=== PATIENT | male | born 1955 | race Two or more races ===

== ENCOUNTER 2019-07-07 14:29 | Inpatient (IN) | payer MEDICAID ==
[~2019-07-07] VITALS: Ht 165.1 cm; Wt 64.8 kg
[2019-07-07] MEDS ORDERED: METF-960 PO (14:42)
[2019-07-07 14:52] LABS: GLUCOSE,POINT OF CARE 187 MG/DL (70-110)
[2019-07-07 15:38] LABS: BASOPHILS % (AUTO) 0.1 % (0.0-2.0); EOSINOPHILS % (AUTO) 0.3 % (1.0-6.0); HEMATOCRIT 36.7 % (41-53); HEMOGLOBIN 12.4 g/dL (13.5-17.5); LYMPHOCYTES # (AUTO) 1.2 K/uL (1.0-4.8); LYMPHOCYTES % (AUTO) 7.8 % (22.0-44.0); MEAN CORPUSCULAR HEMOGLOBIN 31.1 pg (26.0-34.0); MEAN CORPUSCULAR HGB CONC 33.9 G/dL (31.0-37.0); MEAN CORPUSCULAR VOLUME 92 fL (80-100); MONOCYTES # (AUTO) 1.4 K/uL (0.1-1.0); MONOCYTES % (AUTO) 9.2 % (2.0-9.0); NEUTROPHILS # (AUTO) 12.2 K/uL (1.8-7.7); NEUTROPHILS % (AUTO) 82.6 % (40.0-70.0); PLATELET COUNT (AUTO) 255 K/uL (150-450); RED BLOOD CELL COUNT(AUTO) 3.99 MIL/uL (4.50-5.90); RED CELL DISTRIBUTION WIDTH 12.9 % (11.5-14.5)
[2019-07-07 15:52] LABS: ANION GAP 7 mmol/L (8-16); CALCIUM, TOTAL 8.5 mg/dL (8.8-10.5); CARBON DIOXIDE 26 mmol/L (22-29); CHLORIDE 102 mmol/L (98-107); CREATININE 0.65 mg/dL (0.60-1.30); GLOMERULAR FILTR. RATE CALC > 60 mL/min (>60); GLUCOSE,RANDOM 226 mg/dL (70-110); SODIUM SERUM 135 mmol/L (136-145); UREA NITROGEN, BLOOD 7 mg/dL (7-18)
[2019-07-07 15:54] LABS: B-TYPE NATRIURETIC PEPTIDE 117 pg/mL (0-100)
[2019-07-07 16:19] LABS: ALANINE AMINOTRANSFERASE 36 U/L (12-78); ALBUMIN 2.9 g/dL (3.4-5.0); ALKALINE PHOSPHATASE 140 U/L (46-116); ASPARTATE AMINOTRANSFERASE 38 U/L (15-37); BILIRUBIN,TOTAL 0.5 mg/dL (0.1-1.0); CREATINE KINASE, TOTAL ONLY 77 U/L (39-308); TOTAL PROTEIN, SERUM 6.5 g/dL (6.4-8.2)
[2019-07-07] MEDS ORDERED: ONDANSETRON HCL 4 MG/2 ML VIAL IVP PRN ×2 (16:45→20:45)
[2019-07-07] MEDS ORDERED: ACETAMINOPHEN 325 MG TABLET PO PRN (16:45)
[2019-07-07] MEDS ORDERED: 0.9% SODIUM CHLORIDE 10 ML SYRINGE IVP PRN (16:45)
[2019-07-07 18:00] LABS: APPEARANCE,URINE CLOUDY (CLEAR); BILIRUBIN,URINE NEGATIVE (NEGATIVE); GLUCOSE, URINE (UA) >=1000 mg/dL (NEGATIVE); KETONES,URINE TRACE mg/dL (NEGATIVE); LEUKOCYTE ESTERASE ,URINE SMALL (NEGATIVE); NITRATE,URINE NEGATIVE (NEGATIVE); OCCULT BLOOD,URINE NEGATIVE (NEGATIVE); PROTEIN,URINE SEE CONFIRM (NEGATIVE)
[2019-07-07 18:31] LABS: BACTERIA,URINE Few /HPF (None Seen); SQUAMOUS EPITHELIAL CELL,UR Many /LPF (None Seen); SULFOSALICYLIC ACID,URINE 3+ (Negative)
[2019-07-07] MEDS ORDERED: ZOLPIDEM TARTRATE 5 MG TABLET PO PRN (20:45)
[2019-07-07] MEDS ORDERED: BISACODYL 10 MG RECTAL RECTAL SUPPOSITORY PR PRN (20:45)
[2019-07-07] MEDS: DOCUSATE SODIUM 100 MG CAPSULE PO SCH (21:00)
[2019-07-07] MEDS: PIPERACILLIN/TAZO 3.375 GM/D5W 50 ML IV SCH (22:15)
[2019-07-07 23:02] LABS: GLUCOSE,POINT OF CARE 150 MG/DL (70-110)
[2019-07-07] MEDS: HEPARIN SODIUM,PORCINE 5,000 UNITS/ML VIAL SQ SCH (23:27)
[2019-07-08] MEDS: PIPERACILLIN/TAZO 3.375 GM/D5W 50 ML IV SCH ×4 (03:40→22:03)
[2019-07-08 04:04] VITALS: BP 116/63
[2019-07-08] MEDS ORDERED: INFLUENZA VIRUS VACCINE QVS 2019-20 (3YR+)/PF 60 MCG/0.5 ML SYRINGE IM ONE (06:00)
[2019-07-08 06:51] LABS: BASOPHILS % (AUTO) 0.3 % (0.0-2.0); EOSINOPHILS % (AUTO) 0.4 % (1.0-6.0); HEMATOCRIT 33.9 % (41-53); LYMPHOCYTES % (AUTO) 18.6 % (22.0-44.0); MEAN CORPUSCULAR HEMOGLOBIN 32.2 pg (26.0-34.0); MEAN CORPUSCULAR HGB CONC 35.2 G/dL (31.0-37.0); MEAN CORPUSCULAR VOLUME 91 fL (80-100); MONOCYTES % (AUTO) 9.4 % (2.0-9.0); NEUTROPHILS # (AUTO) 7.6 K/uL (1.8-7.7); NEUTROPHILS % (AUTO) 71.3 % (40.0-70.0); PLATELET COUNT (AUTO) 282 K/uL (150-450); RED BLOOD CELL COUNT(AUTO) 3.71 MIL/uL (4.50-5.90); RED CELL DISTRIBUTION WIDTH 12.6 % (11.5-14.5)
[2019-07-08 07:18] LABS: ALANINE AMINOTRANSFERASE 31 U/L (12-78); ALBUMIN 2.7 g/dL (3.4-5.0); ALKALINE PHOSPHATASE 135 U/L (46-116); ANION GAP 9 mmol/L (8-16); ASPARTATE AMINOTRANSFERASE 27 U/L (15-37); CALCIUM, TOTAL 8.2 mg/dL (8.8-10.5); CARBON DIOXIDE 27 mmol/L (22-29); CHLORIDE 104 mmol/L (98-107); CREATININE 0.61 mg/dL (0.60-1.30); GLOMERULAR FILTR. RATE CALC > 60 mL/min (>60); GLUCOSE,RANDOM 147 mg/dL (70-110); POTASSIUM 3.3 mmol/L (3.5-5.1); SODIUM SERUM 140 mmol/L (136-145); TOTAL PROTEIN, SERUM 6.3 g/dL (6.4-8.2); UREA NITROGEN, BLOOD 7 mg/dL (7-18)
[2019-07-08 07:34] LABS: BILIRUBIN,TOTAL 0.8 mg/dL (0.1-1.0)
[2019-07-08 08:03] VITALS: BP 119/64
[2019-07-08] MEDS: HEPARIN SODIUM,PORCINE 5,000 UNITS/ML VIAL SQ SCH ×2 (08:27→16:27)
[2019-07-08] MEDS: DOCUSATE SODIUM 100 MG CAPSULE PO SCH ×2 (08:27→21:00)
[2019-07-08] MEDS: PANTOPRAZOLE SODIUM 40 MG DR TABLET PO SCH (08:28)
[2019-07-08] MEDS ORDERED: GADOBUTROL 1 MMOL/ML 10 ML VIAL IVP ONE (08:38)
[2019-07-08 12:01] VITALS: BP 142/93
[2019-07-08] MEDS: HYDROCODONE/ACETAMINOPHEN 5-325 MG TABLET PO PRN (15:11)
[2019-07-08 16:00] VITALS: BP 131/67
[2019-07-08 20:33] VITALS: BP 110/61
[2019-07-09 00:25] VITALS: BP 126/71
[2019-07-09] MEDS: PIPERACILLIN/TAZO 3.375 GM/D5W 50 ML IV SCH ×4 (03:55→21:30)
[2019-07-09] MEDS: HYDROCODONE/ACETAMINOPHEN 5-325 MG TABLET PO PRN ×2 (04:34→14:05)
[2019-07-09 05:01] VITALS: BP 122/68
[2019-07-09 06:05] LABS: BASOPHILS % (AUTO) 0.5 % (0.0-2.0); EOSINOPHILS % (AUTO) 0.9 % (1.0-6.0); HEMATOCRIT 33.4 % (41-53); HEMOGLOBIN 11.7 g/dL (13.5-17.5); LYMPHOCYTES # (AUTO) 0.8 K/uL (1.0-4.8); LYMPHOCYTES % (AUTO) 9.8 % (22.0-44.0); MEAN CORPUSCULAR HEMOGLOBIN 31.9 pg (26.0-34.0); MEAN CORPUSCULAR VOLUME 91 fL (80-100); MONOCYTES # (AUTO) 0.7 K/uL (0.1-1.0); MONOCYTES % (AUTO) 8.3 % (2.0-9.0); NEUTROPHILS % (AUTO) 80.5 % (40.0-70.0); PLATELET COUNT (AUTO) 290 K/uL (150-450); RED BLOOD CELL COUNT(AUTO) 3.66 MIL/uL (4.50-5.90); RED CELL DISTRIBUTION WIDTH 12.7 % (11.5-14.5)
[2019-07-09 08:14] VITALS: BP 119/72
[2019-07-09] MEDS: DOCUSATE SODIUM 100 MG CAPSULE PO SCH ×2 (09:06→21:00)
[2019-07-09] MEDS: PANTOPRAZOLE SODIUM 40 MG DR TABLET PO SCH (09:06)
[2019-07-09] MEDS: HEPARIN SODIUM,PORCINE 5,000 UNITS/ML VIAL SQ SCH ×2 (09:06)
[2019-07-09 12:45] VITALS: BP 139/70
[2019-07-09] MEDS ORDERED: POTASSIUM CHLORIDE 20 MEQ ER TABLET PO ONE (13:00)
[2019-07-09] MEDS ORDERED: HEPARIN SODIUM 25000 UNITS/D5W 250 ML IV PRN (14:28)
[2019-07-09] MEDS ORDERED: ASPIRIN 81 MG CHEWABLE TABLET PO ONE (14:30)
[2019-07-09] MEDS ORDERED: HEPARIN SODIUM,PORCINE 5,000 UNITS/ML VIAL IVP PRN ×2 (14:30)
[2019-07-09] MEDS ORDERED: HEPARIN SODIUM,PORCINE 5,000 UNITS/ML VIAL IVP ONE (14:30)
[2019-07-09] MEDS ORDERED: INFLUENZA VIRUS VACCINE QVS 2019-20 (3YR+)/PF 60 MCG/0.5 ML SYRINGE IM ONE (15:00)
[2019-07-09 15:41] VITALS: BP 121/71
[2019-07-09] MEDS ORDERED: SODIUM CHLORIDE 0.9% 250 ML IV ONE (16:08)
[2019-07-09] MEDS ORDERED: DEXTROSE 50%-WATER 25 GM/50 ML SYRINGE IVP PRN (17:30)
[2019-07-09 17:44] LABS: GLUCOMETER DEV NAME(LOC) 5N.1; GLUCOSE,POINT OF CARE 164 MG/DL (70-110)
[2019-07-09] MEDS: INSULIN LISPRO 100 UNITS/ML SQ PRN (18:26)
[2019-07-09 20:08] VITALS: BP 101/57
[2019-07-10 00:11] VITALS: BP 104/63
[2019-07-10 01:50] LABS: GLUCOMETER DEV NAME(LOC) 5N.1; GLUCOSE,POINT OF CARE 120 MG/DL (70-110)
[2019-07-10] MEDS: PIPERACILLIN/TAZO 3.375 GM/D5W 50 ML IV SCH ×4 (04:17→21:30)
[2019-07-10 04:27] VITALS: BP 116/65
[2019-07-10 07:16] LABS: BASOPHILS % (AUTO) 0.3 % (0.0-2.0); EOSINOPHILS % (AUTO) 1.1 % (1.0-6.0); HEMATOCRIT 33.1 % (41-53); HEMOGLOBIN 11.7 g/dL (13.5-17.5); LYMPHOCYTES # (AUTO) 1.4 K/uL (1.0-4.8); LYMPHOCYTES % (AUTO) 17.9 % (22.0-44.0); MEAN CORPUSCULAR HGB CONC 35.3 G/dL (31.0-37.0); MEAN CORPUSCULAR VOLUME 91 fL (80-100); MONOCYTES # (AUTO) 0.9 K/uL (0.1-1.0); MONOCYTES % (AUTO) 12.3 % (2.0-9.0); NEUTROPHILS # (AUTO) 5.3 K/uL (1.8-7.7); NEUTROPHILS % (AUTO) 68.4 % (40.0-70.0); PLATELET COUNT (AUTO) 297 K/uL (150-450); RED BLOOD CELL COUNT(AUTO) 3.65 MIL/uL (4.50-5.90); RED CELL DISTRIBUTION WIDTH 12.6 % (11.5-14.5)
[2019-07-10 07:28] LABS: ALANINE AMINOTRANSFERASE 30 U/L (12-78); ALBUMIN 2.5 g/dL (3.4-5.0); ALKALINE PHOSPHATASE 206 U/L (46-116); ANION GAP 10 mmol/L (8-16); ASPARTATE AMINOTRANSFERASE 33 U/L (15-37); BILIRUBIN,TOTAL 0.9 mg/dL (0.1-1.0); CALCIUM, TOTAL 8.3 mg/dL (8.8-10.5); CARBON DIOXIDE 28 mmol/L (22-29); CHLORIDE 103 mmol/L (98-107); CREATININE 0.64 mg/dL (0.60-1.30); GLOMERULAR FILTR. RATE CALC > 60 mL/min (>60); GLUCOSE,RANDOM 123 mg/dL (70-110); POTASSIUM 3.5 mmol/L (3.5-5.1); SODIUM SERUM 141 mmol/L (136-145); TOTAL PROTEIN, SERUM 6.2 g/dL (6.4-8.2); UREA NITROGEN, BLOOD 6 mg/dL (7-18)
[2019-07-10 08:07] VITALS: BP 113/60
[2019-07-10] MEDS: ASPIRIN 81 MG CHEWABLE TABLET PO SCH (08:34)
[2019-07-10] MEDS: DOCUSATE SODIUM 100 MG CAPSULE PO SCH ×2 (08:34→20:17)
[2019-07-10] MEDS: PANTOPRAZOLE SODIUM 40 MG DR TABLET PO SCH (08:35)
[2019-07-10 08:40] LABS: GLUCOMETER DEV NAME(LOC) AHU.; GLUCOSE,POINT OF CARE 158 MG/DL (70-110)
[2019-07-10 08:40] LABS: GLUCOMETER DEV NAME(LOC) AHU.; GLUCOSE,POINT OF CARE 173 MG/DL (70-110)
[2019-07-10 08:40] LABS: GLUCOMETER DEV NAME(LOC) AHU.; GLUCOSE,POINT OF CARE 141 MG/DL (70-110)
[2019-07-10 08:40] LABS: GLUCOMETER DEV NAME(LOC) AHU.; GLUCOSE,POINT OF CARE 225 MG/DL (70-110)
[2019-07-10 08:40] LABS: GLUCOMETER DEV NAME(LOC) AHU.; GLUCOSE,POINT OF CARE 212 MG/DL (70-110)
[2019-07-10 11:16] LABS: GLUCOMETER DEV NAME(LOC) 5N.1; GLUCOSE,POINT OF CARE 123 MG/DL (70-110)
[2019-07-10 11:45] VITALS: BP 127/70
[2019-07-10 11:51] LABS: GLUCOMETER DEV NAME(LOC) 5S.2A; GLUCOSE,POINT OF CARE 146 MG/DL (70-110)
[2019-07-10] MEDS: INSULIN LISPRO 100 UNITS/ML SQ PRN ×3 (12:39→20:18)
[2019-07-10] MEDS: HYDROCODONE/ACETAMINOPHEN 5-325 MG TABLET PO PRN (13:53)
[2019-07-10 16:09] VITALS: BP 109/64
[2019-07-10 17:51] LABS: GLUCOMETER DEV NAME(LOC) 5N.1; GLUCOSE,POINT OF CARE 175 MG/DL (70-110)
[2019-07-10 20:29] VITALS: BP 118/65
[2019-07-10 21:33] LABS: GLUCOMETER DEV NAME(LOC) 5N.1; GLUCOSE,POINT OF CARE 194 MG/DL (70-110)
[2019-07-11 00:18] VITALS: BP 118/67
[2019-07-11] MEDS: HYDROCODONE/ACETAMINOPHEN 5-325 MG TABLET PO PRN ×3 (02:16→21:38)
[2019-07-11] MEDS: PIPERACILLIN/TAZO 3.375 GM/D5W 50 ML IV SCH ×4 (03:47→21:38)
[2019-07-11 04:53] VITALS: BP 126/76
[2019-07-11] MEDS: INSULIN LISPRO 100 UNITS/ML SQ PRN ×3 (06:21→17:43)
[2019-07-11] MEDS: PANTOPRAZOLE SODIUM 40 MG DR TABLET PO SCH (09:35)
[2019-07-11] MEDS: ASPIRIN 81 MG CHEWABLE TABLET PO SCH (09:35)
[2019-07-11] MEDS: DOCUSATE SODIUM 100 MG CAPSULE PO SCH ×2 (09:35→21:00)
[2019-07-11] MEDS: POVIDONE-IODINE 10% 120 ML SOLUTION TP SCH ×2 (12:15→21:39)
[2019-07-11 14:23] LABS: GLUCOMETER DEV NAME(LOC) 5N.1; GLUCOSE,POINT OF CARE 251 MG/DL (70-110)
[2019-07-11 18:39] LABS: GLUCOMETER DEV NAME(LOC) 5N.1; GLUCOSE,POINT OF CARE 177 MG/DL (70-110)
[2019-07-11 20:29] LABS: GLUCOMETER DEV NAME(LOC) 5S.2A; GLUCOSE,POINT OF CARE 177 MG/DL (70-110)
[2019-07-11 20:44] VITALS: BP 106/69
[2019-07-11] MEDS ORDERED: SODIUM CHLORIDE 0.9% 250 ML IV ONE (21:41)
[2019-07-12 00:26] VITALS: BP 105/71
[2019-07-12 01:13] LABS: GLUCOMETER DEV NAME(LOC) 5N.1; GLUCOSE,POINT OF CARE 161 MG/DL (70-110)
[2019-07-12] MEDS: PIPERACILLIN/TAZO 3.375 GM/D5W 50 ML IV SCH ×4 (04:56→22:08)
[2019-07-12] MEDS: HYDROCODONE/ACETAMINOPHEN 5-325 MG TABLET PO PRN ×3 (04:57→20:49)
[2019-07-12 05:38] VITALS: BP 132/68
[2019-07-12 07:31] VITALS: BP 122/72
[2019-07-12] MEDS: PANTOPRAZOLE SODIUM 40 MG DR TABLET PO SCH (08:27)
[2019-07-12] MEDS: ASPIRIN 81 MG CHEWABLE TABLET PO SCH (08:27)
[2019-07-12] MEDS: DOCUSATE SODIUM 100 MG CAPSULE PO SCH ×2 (08:27→20:50)
[2019-07-12] MEDS: POVIDONE-IODINE 10% 120 ML SOLUTION TP SCH ×2 (08:29→20:52)
[2019-07-12 11:13] VITALS: BP 135/69
[2019-07-12] MEDS: INSULIN LISPRO 100 UNITS/ML SQ PRN ×2 (11:19→17:44)
[2019-07-12 15:50] VITALS: BP 122/65
[2019-07-12 21:02] VITALS: BP 129/62
[2019-07-12 22:26] LABS: BASOPHILS % (AUTO) 0.3 % (0.0-2.0); EOSINOPHILS % (AUTO) 1.2 % (1.0-6.0); HEMOGLOBIN 11.1 g/dL (13.5-17.5); LYMPHOCYTES # (AUTO) 1.7 K/uL (1.0-4.8); LYMPHOCYTES % (AUTO) 19.1 % (22.0-44.0); MEAN CORPUSCULAR HEMOGLOBIN 31.6 pg (26.0-34.0); MEAN CORPUSCULAR HGB CONC 34.8 G/dL (31.0-37.0); MEAN CORPUSCULAR VOLUME 91 fL (80-100); MONOCYTES # (AUTO) 1.1 K/uL (0.1-1.0); NEUTROPHILS # (AUTO) 6.1 K/uL (1.8-7.7); NEUTROPHILS % (AUTO) 67.4 % (40.0-70.0); PLATELET COUNT (AUTO) 346 K/uL (150-450); RED BLOOD CELL COUNT(AUTO) 3.51 MIL/uL (4.50-5.90); RED CELL DISTRIBUTION WIDTH 12.5 % (11.5-14.5)
[2019-07-12 22:43] LABS: ANION GAP 7 mmol/L (8-16); CALCIUM, TOTAL 8.7 mg/dL (8.8-10.5); CARBON DIOXIDE 29 mmol/L (22-29); CHLORIDE 99 mmol/L (98-107); CREATININE 0.77 mg/dL (0.60-1.30); GLOMERULAR FILTR. RATE CALC > 60 mL/min (>60); GLUCOSE,RANDOM 209 mg/dL (70-110); POTASSIUM 3.9 mmol/L (3.5-5.1); SODIUM SERUM 135 mmol/L (136-145); UREA NITROGEN, BLOOD 7 mg/dL (7-18)
[2019-07-12 23:22] LABS: GLUCOMETER DEV NAME(LOC) 5N.1; GLUCOSE,POINT OF CARE 167 MG/DL (70-110)
[2019-07-12 23:22] LABS: GLUCOMETER DEV NAME(LOC) 5N.1; GLUCOSE,POINT OF CARE 170 MG/DL (70-110)
[2019-07-13] VITALS (15 sets, daily range): BP systolic 112–143; BP diastolic 54–68
[2019-07-13] MEDS: HYDROCODONE/ACETAMINOPHEN 5-325 MG TABLET PO PRN ×2 (00:33→15:17)
[2019-07-13] MEDS: PIPERACILLIN/TAZO 3.375 GM/D5W 50 ML IV SCH ×4 (04:30→22:10)
[2019-07-13 07:05] LABS: GLUCOMETER DEV NAME(LOC) 5N.1; GLUCOSE,POINT OF CARE 176 MG/DL (70-110)
[2019-07-13] MEDS ORDERED: LIDOCAINE/PF 1% 30 ML VIAL ONE (07:23)
[2019-07-13] MEDS ORDERED: HEPARIN SODIUM 1000 UNITS/NS 1,000 ML ONE (07:23)
[2019-07-13] MEDS ORDERED: SODIUM BICARBONATE 50 MEQ/50 ML VIAL ONE (07:23)
[2019-07-13] MEDS ORDERED: IOHEXOL 300 MG/ML 150 ML VIAL ONE (07:23)
[2019-07-13] MEDS ORDERED: SODIUM CHLORIDE 0.9% 500 ML IV ONE (08:34)
[2019-07-13] MEDS ORDERED: HEPARIN SODIUM 1000 UNITS/NS 1,000 ML IARTER ONE (08:34)
[2019-07-13] MEDS ORDERED: IOHEXOL 300 MG/ML 150 ML VIAL IARTER ONE (08:45)
[2019-07-13] MEDS ORDERED: LIDOCAINE 1% 30 ML/SOD BICARB 8.4% 4 ML SQ ONE (08:45)
[2019-07-13] MEDS ORDERED: IOHEXOL 300 MG/ML 50 ML VIAL ONE (08:54)
[2019-07-13] MEDS: PANTOPRAZOLE SODIUM 40 MG DR TABLET PO SCH (10:33)
[2019-07-13] MEDS: MULTIVITAMINS, THERAPEUTIC TABLET PO SCH (10:33)
[2019-07-13] MEDS: DOCUSATE SODIUM 100 MG CAPSULE PO SCH ×2 (10:33→20:17)
[2019-07-13] MEDS: POVIDONE-IODINE 10% 120 ML SOLUTION TP SCH ×2 (10:34→20:31)
[2019-07-13] MEDS: ASPIRIN 81 MG CHEWABLE TABLET PO SCH (10:34)
[2019-07-13] MEDS: INSULIN LISPRO 100 UNITS/ML SQ PRN ×2 (11:15→17:22)
[2019-07-13 12:12] LABS: GLUCOMETER DEV NAME(LOC) 5N.1; GLUCOSE,POINT OF CARE 197 MG/DL (70-110)
[2019-07-13 17:37] LABS: GLUCOMETER DEV NAME(LOC) 5S.2A; GLUCOSE,POINT OF CARE 180 MG/DL (70-110)
[2019-07-13 17:37] LABS: GLUCOMETER DEV NAME(LOC) 5S.2A; GLUCOSE,POINT OF CARE 146 MG/DL (70-110)
[2019-07-13] MEDS: MORPHINE SULFATE 2 MG/ML SYRINGE IVP PRN (20:17)
[2019-07-14 00:28] VITALS: BP 128/65
[2019-07-14] MEDS: PIPERACILLIN/TAZO 3.375 GM/D5W 50 ML IV SCH ×4 (04:28→21:45)
[2019-07-14 04:48] VITALS: BP 120/68
[2019-07-14] MEDS: INSULIN LISPRO 100 UNITS/ML SQ PRN ×4 (05:56→21:50)
[2019-07-14 05:59] LABS: GLUCOMETER DEV NAME(LOC) 5N.1; GLUCOSE,POINT OF CARE 137 MG/DL (70-110)
[2019-07-14] MEDS: HYDROCODONE/ACETAMINOPHEN 5-325 MG TABLET PO PRN ×2 (05:59→17:50)
[2019-07-14 07:23] VITALS: BP 114/58
[2019-07-14] MEDS: POVIDONE-IODINE 10% 120 ML SOLUTION TP SCH ×3 (09:00→16:55)
[2019-07-14] MEDS: DOCUSATE SODIUM 100 MG CAPSULE PO SCH ×2 (09:12→21:45)
[2019-07-14] MEDS: PANTOPRAZOLE SODIUM 40 MG DR TABLET PO SCH (09:12)
[2019-07-14] MEDS: MULTIVITAMINS, THERAPEUTIC TABLET PO SCH (09:12)
[2019-07-14] MEDS: ASPIRIN 81 MG CHEWABLE TABLET PO SCH (09:13)
[2019-07-14 11:43] VITALS: BP 114/56
[2019-07-14 12:00] LABS: GLUCOMETER DEV NAME(LOC) 5S.1; GLUCOSE,POINT OF CARE 269 MG/DL (70-110)
[2019-07-14 15:35] LABS: GLUCOMETER DEV NAME(LOC) 5S.2A; GLUCOSE,POINT OF CARE 190 MG/DL (70-110)
[2019-07-14 15:38] VITALS: BP 119/54
[2019-07-14] MEDS ORDERED: IOVERSOL 320 MG/ML 100 ML VIAL ONE (17:52)
[2019-07-14] MEDS ORDERED: SODIUM CHLORIDE 0.9% 100 ML ONE (17:52)
[2019-07-14 19:45] VITALS: BP 121/65
[2019-07-14] MEDS: VANCOMYCIN HCL 750 MG in DEXTROSE 5%-WATER 250 ML IV SCH (23:48)
[2019-07-15] VITALS (7 sets, daily range): BP systolic 108–129; BP diastolic 58–68
[2019-07-15] MEDS: HYDROCODONE/ACETAMINOPHEN 5-325 MG TABLET PO PRN ×2 (02:56→23:33)
[2019-07-15 03:53] LABS: GLUCOMETER DEV NAME(LOC) 5N.1; GLUCOSE,POINT OF CARE 219 MG/DL (70-110)
[2019-07-15 03:53] LABS: GLUCOMETER DEV NAME(LOC) 5N.1; GLUCOSE,POINT OF CARE 163 MG/DL (70-110)
[2019-07-15] MEDS: PIPERACILLIN/TAZO 3.375 GM/D5W 50 ML IV SCH ×4 (04:33→22:57)
[2019-07-15] MEDS: INSULIN LISPRO 100 UNITS/ML SQ PRN ×4 (06:25→23:07)
[2019-07-15] MEDS: VANCOMYCIN HCL 750 MG in DEXTROSE 5%-WATER 250 ML IV SCH ×3 (07:15→23:54)
[2019-07-15 07:20] LABS: ANION GAP 9 mmol/L (8-16); CALCIUM, TOTAL 9.1 mg/dL (8.8-10.5); CARBON DIOXIDE 27 mmol/L (22-29); CHLORIDE 101 mmol/L (98-107); CREATININE 0.75 mg/dL (0.60-1.30); GLOMERULAR FILTR. RATE CALC > 60 mL/min (>60); GLUCOSE,RANDOM 200 mg/dL (70-110); POTASSIUM 3.8 mmol/L (3.5-5.1); SODIUM SERUM 137 mmol/L (136-145); UREA NITROGEN, BLOOD 8 mg/dL (7-18)
[2019-07-15] MEDS: DOCUSATE SODIUM 100 MG CAPSULE PO SCH ×2 (09:00→21:00)
[2019-07-15] MEDS: MULTIVITAMINS, THERAPEUTIC TABLET PO SCH (09:02)
[2019-07-15] MEDS: ASPIRIN 81 MG CHEWABLE TABLET PO SCH (09:02)
[2019-07-15] MEDS: PANTOPRAZOLE SODIUM 40 MG DR TABLET PO SCH (09:02)
[2019-07-15 19:08] LABS: GLUCOMETER DEV NAME(LOC) 5S.2A; GLUCOSE,POINT OF CARE 203 MG/DL (70-110)
[2019-07-15 19:08] LABS: GLUCOMETER DEV NAME(LOC) 5S.2A; GLUCOSE,POINT OF CARE 189 MG/DL (70-110)
[2019-07-15 19:08] LABS: GLUCOMETER DEV NAME(LOC) 5S.2A; GLUCOSE,POINT OF CARE 261 MG/DL (70-110)
[2019-07-15] MEDS: POVIDONE-IODINE 10% 120 ML SOLUTION TP SCH (21:00)
[2019-07-16] VITALS (7 sets, daily range): BP systolic 107–133; BP diastolic 58–79
[2019-07-16 03:11] LABS: GLUCOMETER DEV NAME(LOC) 5N.1; GLUCOSE,POINT OF CARE 188 MG/DL (70-110)
[2019-07-16] MEDS: MORPHINE SULFATE 2 MG/ML SYRINGE IVP PRN (04:42)
[2019-07-16] MEDS: PIPERACILLIN/TAZO 3.375 GM/D5W 50 ML IV SCH ×4 (04:42→21:29)
[2019-07-16] MEDS: VANCOMYCIN HCL 750 MG in DEXTROSE 5%-WATER 250 ML IV SCH (07:11)
[2019-07-16 07:45] LABS: ANION GAP 9 mmol/L (8-16); CALCIUM, TOTAL 9.1 mg/dL (8.8-10.5); CARBON DIOXIDE 27 mmol/L (22-29); CHLORIDE 102 mmol/L (98-107); CREATININE 0.67 mg/dL (0.60-1.30); GLOMERULAR FILTR. RATE CALC > 60 mL/min (>60); GLUCOSE,RANDOM 180 mg/dL (70-110); POTASSIUM 3.9 mmol/L (3.5-5.1); SODIUM SERUM 138 mmol/L (136-145); UREA NITROGEN, BLOOD 9 mg/dL (7-18)
[2019-07-16 07:46] LABS: PROTHROMBIN TIME 10.4 SEC (9.4-11.6)
[2019-07-16] MEDS: PANTOPRAZOLE SODIUM 40 MG DR TABLET PO SCH (07:56)
[2019-07-16] MEDS: ASPIRIN 81 MG CHEWABLE TABLET PO SCH (07:56)
[2019-07-16] MEDS: MULTIVITAMINS, THERAPEUTIC TABLET PO SCH (07:56)
[2019-07-16] MEDS: DOCUSATE SODIUM 100 MG CAPSULE PO SCH ×2 (07:56→20:17)
[2019-07-16] MEDS: POVIDONE-IODINE 10% 120 ML SOLUTION TP SCH ×2 (07:57→23:49)
[2019-07-16] MEDS ORDERED: LIDOCAINE/PF 1% 30 ML VIAL ONE (08:39)
[2019-07-16] MEDS ORDERED: HEPARIN SODIUM 1000 UNITS/NS 500 ML ONE ×2 (08:39→10:09)
[2019-07-16] MEDS ORDERED: IOHEXOL 300 MG/ML 100 ML VIAL ONE (08:39)
[2019-07-16] MEDS ORDERED: SODIUM BICARBONATE 50 MEQ/50 ML VIAL ONE (08:39)
[2019-07-16] MEDS ORDERED: SODIUM CHLORIDE 0.9% 500 ML IV ONE (09:21)
[2019-07-16] MEDS ORDERED: HEPARIN SODIUM 1000 UNITS/NS 500 ML IV ONE (09:30)
[2019-07-16] MEDS ORDERED: HEPARIN SODIUM,PORCINE 5,000 UNITS/ML VIAL IVP ONE ×3 (09:30→10:45)
[2019-07-16] MEDS ORDERED: IOHEXOL 300 MG/ML 100 ML VIAL IARTER ONE (09:30)
[2019-07-16] MEDS ORDERED: LIDOCAINE 1% 30 ML/SOD BICARB 8.4% 4 ML SQ ONE (09:30)
[2019-07-16] MEDS ORDERED: ASPIRIN 325 MG TABLET ONE (10:12)
[2019-07-16] MEDS ORDERED: ASPIRIN 325 MG TABLET PO ONE (10:30)
[2019-07-16] MEDS ORDERED: IOHEXOL 300 MG/ML 50 ML VIAL ONE ×2 (11:21→11:47)
[2019-07-16] MEDS ORDERED: IOHEXOL 240 MG/ML 50 ML VIAL IARTER ONE (12:00)
[2019-07-16] MEDS ORDERED: IOHEXOL 300 MG/ML 50 ML VIAL IARTER ONE (12:00)
[2019-07-16 13:28] LABS: GLUCOMETER DEV NAME(LOC) 5N.1; GLUCOSE,POINT OF CARE 195 MG/DL (70-110)
[2019-07-16 17:24] LABS: GLUCOMETER DEV NAME(LOC) 5S.2A; GLUCOSE,POINT OF CARE 156 MG/DL (70-110)
[2019-07-16] MEDS: VANCOMYCIN HCL 1.25 GM in DEXTROSE 5%-WATER 250 ML IV SCH ×2 (17:52→23:42)
[2019-07-16] MEDS: INSULIN LISPRO 100 UNITS/ML SQ PRN ×2 (17:53→21:25)
[2019-07-16] MEDS: HYDROCODONE/ACETAMINOPHEN 5-325 MG TABLET PO PRN (18:04)
[2019-07-16] MEDS ORDERED: CLOPIDOGREL BISULFATE 300 MG TABLET PO ONE (20:00)
[2019-07-17 00:01] VITALS: BP 100/51
[2019-07-17 01:40] LABS: GLUCOMETER DEV NAME(LOC) 5N.1; GLUCOSE,POINT OF CARE 223 MG/DL (70-110)
[2019-07-17 01:40] LABS: GLUCOMETER DEV NAME(LOC) 5N.1; GLUCOSE,POINT OF CARE 280 MG/DL (70-110)
[2019-07-17] MEDS: PIPERACILLIN/TAZO 3.375 GM/D5W 50 ML IV SCH ×4 (03:00→21:05)
[2019-07-17 05:28] VITALS: BP 105/55
[2019-07-17] MEDS: HYDROCODONE/ACETAMINOPHEN 5-325 MG TABLET PO PRN ×2 (05:52→23:50)
[2019-07-17] MEDS ORDERED: SODIUM CHLORIDE 0.9% 250 ML IV ONE (05:56)
[2019-07-17] MEDS: VANCOMYCIN HCL 1.25 GM in DEXTROSE 5%-WATER 250 ML IV SCH ×3 (06:05→22:13)
[2019-07-17] MEDS: INSULIN LISPRO 100 UNITS/ML SQ PRN ×4 (06:10→20:34)
[2019-07-17 07:25] VITALS: BP 114/59
[2019-07-17] MEDS: ASPIRIN 81 MG CHEWABLE TABLET PO SCH (08:03)
[2019-07-17] MEDS: DOCUSATE SODIUM 100 MG CAPSULE PO SCH ×2 (08:04→20:33)
[2019-07-17] MEDS: POVIDONE-IODINE 10% 120 ML SOLUTION TP SCH ×2 (08:04→20:35)
[2019-07-17] MEDS: CLOPIDOGREL BISULFATE 75 MG TABLET PO SCH (08:04)
[2019-07-17] MEDS: MULTIVITAMINS, THERAPEUTIC TABLET PO SCH (08:04)
[2019-07-17] MEDS: PANTOPRAZOLE SODIUM 40 MG DR TABLET PO SCH (08:04)
[2019-07-17 11:02] VITALS: BP 127/64
[2019-07-17 11:38] LABS: ANION GAP 7 mmol/L (8-16); CALCIUM, TOTAL 8.7 mg/dL (8.8-10.5); CARBON DIOXIDE 29 mmol/L (22-29); CHLORIDE 101 mmol/L (98-107); CREATININE 0.89 mg/dL (0.60-1.30); GLOMERULAR FILTR. RATE CALC > 60 mL/min (>60); GLUCOSE,RANDOM 264 mg/dL (70-110); POTASSIUM 4.1 mmol/L (3.5-5.1); SODIUM SERUM 137 mmol/L (136-145); UREA NITROGEN, BLOOD 12 mg/dL (7-18)
[2019-07-17 12:30] LABS: GLUCOMETER DEV NAME(LOC) 5N.1; GLUCOSE,POINT OF CARE 241 MG/DL (70-110)
[2019-07-17 12:30] LABS: GLUCOMETER DEV NAME(LOC) 5N.1; GLUCOSE,POINT OF CARE 232 MG/DL (70-110)
[2019-07-17 16:14] VITALS: BP 134/66
[2019-07-17 20:20] VITALS: BP 126/65
[2019-07-17 20:27] LABS: GLUCOMETER DEV NAME(LOC) 5S.2A; GLUCOSE,POINT OF CARE 268 MG/DL (70-110)
[2019-07-18] VITALS (7 sets, daily range): BP systolic 107–133; BP diastolic 57–72
[2019-07-18] MEDS: PIPERACILLIN/TAZO 3.375 GM/D5W 50 ML IV SCH ×4 (03:03→22:18)
[2019-07-18] MEDS: VANCOMYCIN HCL 1.25 GM in DEXTROSE 5%-WATER 250 ML IV SCH ×3 (05:44→22:48)
[2019-07-18] MEDS: INSULIN LISPRO 100 UNITS/ML SQ PRN ×4 (06:01→20:14)
[2019-07-18 06:21] LABS: GLUCOMETER DEV NAME(LOC) 5N.1; GLUCOSE,POINT OF CARE 259 MG/DL (70-110)
[2019-07-18 06:22] LABS: GLUCOMETER DEV NAME(LOC) 5N.1; GLUCOSE,POINT OF CARE 193 MG/DL (70-110)
[2019-07-18] MEDS: PANTOPRAZOLE SODIUM 40 MG DR TABLET PO SCH (08:33)
[2019-07-18] MEDS: DOCUSATE SODIUM 100 MG CAPSULE PO SCH ×2 (08:33→20:08)
[2019-07-18] MEDS: CLOPIDOGREL BISULFATE 75 MG TABLET PO SCH (08:33)
[2019-07-18] MEDS: ASPIRIN 81 MG CHEWABLE TABLET PO SCH (08:33)
[2019-07-18] MEDS: MULTIVITAMINS, THERAPEUTIC TABLET PO SCH (08:33)
[2019-07-18 08:35] LABS: ANION GAP 7 mmol/L (8-16); CALCIUM, TOTAL 9.3 mg/dL (8.8-10.5); CARBON DIOXIDE 30 mmol/L (22-29); CHLORIDE 101 mmol/L (98-107); CREATININE 0.86 mg/dL (0.60-1.30); GLOMERULAR FILTR. RATE CALC > 60 mL/min (>60); GLUCOSE,RANDOM 215 mg/dL (70-110); POTASSIUM 3.9 mmol/L (3.5-5.1); SODIUM SERUM 138 mmol/L (136-145); UREA NITROGEN, BLOOD 13 mg/dL (7-18); VANCOMYCIN,RANDOM 38.8 mcg/mL (25.0-50.0)
[2019-07-18] MEDS: POVIDONE-IODINE 10% 120 ML SOLUTION TP SCH ×2 (08:41→20:08)
[2019-07-18] MEDS: HYDROCODONE/ACETAMINOPHEN 5-325 MG TABLET PO PRN ×2 (10:46→20:05)
[2019-07-18 20:12] LABS: GLUCOMETER DEV NAME(LOC) 5N.1; GLUCOSE,POINT OF CARE 235 MG/DL (70-110)
[2019-07-18 20:13] LABS: GLUCOMETER DEV NAME(LOC) 5S.2A; GLUCOSE,POINT OF CARE 297 MG/DL (70-110)
[2019-07-19 01:01] LABS: GLUCOMETER DEV NAME(LOC) 5N.1; GLUCOSE,POINT OF CARE 292 MG/DL (70-110)
[2019-07-19] MEDS: PIPERACILLIN/TAZO 3.375 GM/D5W 50 ML IV SCH ×4 (03:38→22:30)
[2019-07-19 04:34] VITALS: BP 119/67
[2019-07-19] MEDS: VANCOMYCIN HCL 1.25 GM in DEXTROSE 5%-WATER 250 ML IV SCH ×3 (06:44→23:34)
[2019-07-19] MEDS: INSULIN LISPRO 100 UNITS/ML SQ PRN ×4 (06:44→21:25)
[2019-07-19 07:37] LABS: ANION GAP 8 mmol/L (8-16); CALCIUM, TOTAL 9.6 mg/dL (8.8-10.5); CARBON DIOXIDE 29 mmol/L (22-29); CHLORIDE 104 mmol/L (98-107); CREATININE 1.04 mg/dL (0.60-1.30); GLOMERULAR FILTR. RATE CALC > 60 mL/min (>60); GLUCOSE,RANDOM 175 mg/dL (70-110); POTASSIUM 4.2 mmol/L (3.5-5.1); SODIUM SERUM 141 mmol/L (136-145); UREA NITROGEN, BLOOD 14 mg/dL (7-18)
[2019-07-19 08:01] VITALS: BP 111/63
[2019-07-19] MEDS: MULTIVITAMINS, THERAPEUTIC TABLET PO SCH (08:12)
[2019-07-19] MEDS: ASPIRIN 81 MG CHEWABLE TABLET PO SCH (08:12)
[2019-07-19] MEDS: CLOPIDOGREL BISULFATE 75 MG TABLET PO SCH (08:12)
[2019-07-19] MEDS: DOCUSATE SODIUM 100 MG CAPSULE PO SCH ×2 (08:12→21:09)
[2019-07-19] MEDS: PANTOPRAZOLE SODIUM 40 MG DR TABLET PO SCH (08:12)
[2019-07-19] MEDS: POVIDONE-IODINE 10% 120 ML SOLUTION TP SCH ×2 (08:12→21:10)
[2019-07-19 11:16] VITALS: BP 111/61
[2019-07-19] MEDS ORDERED: SODIUM CHLORIDE 0.9% 250 ML IV ONE (14:50)
[2019-07-19 15:41] VITALS: BP 110/59
[2019-07-19 19:21] VITALS: BP 118/63
[2019-07-19 21:15] LABS: GLUCOMETER DEV NAME(LOC) 5S.2A; GLUCOSE,POINT OF CARE 167 MG/DL (70-110)
[2019-07-19] MEDS: HYDROCODONE/ACETAMINOPHEN 5-325 MG TABLET PO PRN (23:34)
[2019-07-19 23:50] VITALS: BP 108/55
[2019-07-20] MEDS: PIPERACILLIN/TAZO 3.375 GM/D5W 50 ML IV SCH ×4 (04:39→22:25)
[2019-07-20 05:17] VITALS: BP 139/73
[2019-07-20] MEDS: INSULIN LISPRO 100 UNITS/ML SQ PRN ×4 (06:03→21:56)
[2019-07-20 06:16] LABS: ANION GAP 7 mmol/L (8-16); C-REACTIVE PROTEIN QUANT 8.86 mg/dL (0.00-0.30); CALCIUM, TOTAL 9.5 mg/dL (8.8-10.5); CARBON DIOXIDE 30 mmol/L (22-29); CHLORIDE 100 mmol/L (98-107); CREATININE 1.06 mg/dL (0.60-1.30); GLOMERULAR FILTR. RATE CALC > 60 mL/min (>60); GLUCOSE,RANDOM 217 mg/dL (70-110); POTASSIUM 4.2 mmol/L (3.5-5.1); SODIUM SERUM 137 mmol/L (136-145); UREA NITROGEN, BLOOD 14 mg/dL (7-18)
[2019-07-20 07:03] LABS: GLUCOMETER DEV NAME(LOC) 5N.1; GLUCOSE,POINT OF CARE 202 MG/DL (70-110)
[2019-07-20 07:03] LABS: GLUCOMETER DEV NAME(LOC) 5N.1; GLUCOSE,POINT OF CARE 197 MG/DL (70-110)
[2019-07-20 07:21] LABS: GLUCOMETER DEV NAME(LOC) 5S.2A; GLUCOSE,POINT OF CARE 234 MG/DL (70-110)
[2019-07-20] MEDS: VANCOMYCIN HCL 1.25 GM in DEXTROSE 5%-WATER 250 ML IV SCH ×3 (07:31→23:29)
[2019-07-20 08:31] VITALS: BP 129/71
[2019-07-20] MEDS: CLOPIDOGREL BISULFATE 75 MG TABLET PO SCH (08:36)
[2019-07-20] MEDS: MULTIVITAMINS, THERAPEUTIC TABLET PO SCH (08:37)
[2019-07-20] MEDS: POVIDONE-IODINE 10% 120 ML SOLUTION TP SCH ×2 (08:37→21:38)
[2019-07-20] MEDS: ASPIRIN 81 MG CHEWABLE TABLET PO SCH (08:37)
[2019-07-20] MEDS: PANTOPRAZOLE SODIUM 40 MG DR TABLET PO SCH (08:37)
[2019-07-20] MEDS: DOCUSATE SODIUM 100 MG CAPSULE PO SCH ×2 (08:37→21:38)
[2019-07-20 11:31] VITALS: BP 125/69
[2019-07-20] MEDS: HYDROCODONE/ACETAMINOPHEN 5-325 MG TABLET PO PRN (12:53)
[2019-07-20 16:26] VITALS: BP 100/50
[2019-07-20 18:15] LABS: GLUCOMETER DEV NAME(LOC) 5S.2A; GLUCOSE,POINT OF CARE 239 MG/DL (70-110)
[2019-07-20 20:42] VITALS: BP 134/70
[2019-07-20 23:50] VITALS: BP 128/66
[2019-07-21] MEDS: PIPERACILLIN/TAZO 3.375 GM/D5W 50 ML IV SCH ×4 (04:40→21:24)
[2019-07-21 05:40] VITALS: BP 126/65
[2019-07-21 06:22] LABS: GLUCOMETER DEV NAME(LOC) 5S.2A; GLUCOSE,POINT OF CARE 223 MG/DL (70-110)
[2019-07-21] MEDS: INSULIN LISPRO 100 UNITS/ML SQ PRN ×4 (06:22→21:35)
[2019-07-21] MEDS: HYDROCODONE/ACETAMINOPHEN 5-325 MG TABLET PO PRN ×2 (06:25→22:01)
[2019-07-21] MEDS: VANCOMYCIN HCL 1.25 GM in DEXTROSE 5%-WATER 250 ML IV SCH ×2 (07:41→18:42)
[2019-07-21 07:47] VITALS: BP 127/66
[2019-07-21 07:58] LABS: ANION GAP 8 mmol/L (8-16); CALCIUM, TOTAL 9.7 mg/dL (8.8-10.5); CARBON DIOXIDE 29 mmol/L (22-29); CHLORIDE 100 mmol/L (98-107); CREATININE 1.07 mg/dL (0.60-1.30); GLOMERULAR FILTR. RATE CALC > 60 mL/min (>60); GLUCOSE,RANDOM 210 mg/dL (70-110); POTASSIUM 4.6 mmol/L (3.5-5.1); SODIUM SERUM 137 mmol/L (136-145); UREA NITROGEN, BLOOD 18 mg/dL (7-18); VANCOMYCIN,RANDOM 31.4 mcg/mL (25.0-50.0)
[2019-07-21 08:11] LABS: GLUCOMETER DEV NAME(LOC) 5N.1; GLUCOSE,POINT OF CARE 231 MG/DL (70-110)
[2019-07-21] MEDS: ASPIRIN 81 MG CHEWABLE TABLET PO SCH (08:34)
[2019-07-21] MEDS: DOCUSATE SODIUM 100 MG CAPSULE PO SCH ×2 (08:34→21:24)
[2019-07-21] MEDS: CLOPIDOGREL BISULFATE 75 MG TABLET PO SCH (08:34)
[2019-07-21] MEDS: MULTIVITAMINS, THERAPEUTIC TABLET PO SCH (08:35)
[2019-07-21] MEDS: PANTOPRAZOLE SODIUM 40 MG DR TABLET PO SCH (08:35)
[2019-07-21] MEDS: POVIDONE-IODINE 10% 120 ML SOLUTION TP SCH ×2 (08:35→21:24)
[2019-07-21 11:31] VITALS: BP 101/53
[2019-07-21 16:11] VITALS: BP 110/69
[2019-07-21 17:23] LABS: GLUCOMETER DEV NAME(LOC) 5N.1; GLUCOSE,POINT OF CARE 298 MG/DL (70-110)
[2019-07-21 17:43] LABS: GLUCOMETER DEV NAME(LOC) 5N.1; GLUCOSE,POINT OF CARE 229 MG/DL (70-110)
[2019-07-21 20:18] VITALS: BP 118/66
[2019-07-22 00:11] VITALS: BP 128/65
[2019-07-22] MEDS: PIPERACILLIN/TAZO 3.375 GM/D5W 50 ML IV SCH ×4 (04:07→22:05)
[2019-07-22 04:34] VITALS: BP 124/61
[2019-07-22 05:56] LABS: GLUCOMETER DEV NAME(LOC) 5S.2A; GLUCOSE,POINT OF CARE 275 MG/DL (70-110)
[2019-07-22] MEDS: INSULIN LISPRO 100 UNITS/ML SQ PRN ×3 (06:19→18:19)
[2019-07-22] MEDS: VANCOMYCIN HCL 1.25 GM in DEXTROSE 5%-WATER 250 ML IV SCH ×2 (06:24→18:12)
[2019-07-22 06:58] LABS: BASOPHILS % (AUTO) 0.8 % (0.0-2.0); EOSINOPHILS % (AUTO) 2.6 % (1.0-6.0); HEMATOCRIT 35.3 % (41-53); HEMOGLOBIN 11.9 g/dL (13.5-17.5); LYMPHOCYTES # (AUTO) 1.9 K/uL (1.0-4.8); LYMPHOCYTES % (AUTO) 16.8 % (22.0-44.0); MEAN CORPUSCULAR HEMOGLOBIN 30.8 pg (26.0-34.0); MEAN CORPUSCULAR HGB CONC 33.8 G/dL (31.0-37.0); MEAN CORPUSCULAR VOLUME 91 fL (80-100); MONOCYTES # (AUTO) 1.1 K/uL (0.1-1.0); MONOCYTES % (AUTO) 9.6 % (2.0-9.0); NEUTROPHILS # (AUTO) 7.8 K/uL (1.8-7.7); NEUTROPHILS % (AUTO) 70.2 % (40.0-70.0); PLATELET COUNT (AUTO) 653 K/uL (150-450); RED BLOOD CELL COUNT(AUTO) 3.87 MIL/uL (4.50-5.90)
[2019-07-22 07:06] LABS: GLUCOMETER DEV NAME(LOC) 5N.2; GLUCOSE,POINT OF CARE 220 MG/DL (70-110)
[2019-07-22 07:14] LABS: ANION GAP 8 mmol/L (8-16); CARBON DIOXIDE 28 mmol/L (22-29); CHLORIDE 102 mmol/L (98-107); CREATININE 1.08 mg/dL (0.60-1.30); GLUCOSE,RANDOM 220 mg/dL (70-110); POTASSIUM 4.5 mmol/L (3.5-5.1); SODIUM SERUM 138 mmol/L (136-145); UREA NITROGEN, BLOOD 17 mg/dL (7-18)
[2019-07-22 07:15] LABS: CALCIUM, TOTAL 9.3 mg/dL (8.8-10.5); GLOMERULAR FILTR. RATE CALC > 60 mL/min (>60)
[2019-07-22 07:45] VITALS: BP 137/73
[2019-07-22] MEDS: PANTOPRAZOLE SODIUM 40 MG DR TABLET PO SCH (08:26)
[2019-07-22] MEDS: ASPIRIN 81 MG CHEWABLE TABLET PO SCH (08:26)
[2019-07-22] MEDS: CLOPIDOGREL BISULFATE 75 MG TABLET PO SCH (08:26)
[2019-07-22] MEDS: DOCUSATE SODIUM 100 MG CAPSULE PO SCH ×2 (08:26→20:35)
[2019-07-22] MEDS: MULTIVITAMINS, THERAPEUTIC TABLET PO SCH (08:26)
[2019-07-22] MEDS: POVIDONE-IODINE 10% 120 ML SOLUTION TP SCH ×2 (08:27→20:35)
[2019-07-22 11:33] VITALS: BP 115/62
[2019-07-22 12:47] LABS: GLUCOMETER DEV NAME(LOC) 5S.1; GLUCOSE,POINT OF CARE 253 MG/DL (70-110)
[2019-07-22 15:25] VITALS: BP 112/60
[2019-07-22 18:25] LABS: GLUCOMETER DEV NAME(LOC) 5S.2A; GLUCOSE,POINT OF CARE 232 MG/DL (70-110)
[2019-07-22 19:32] VITALS: BP 119/62
[2019-07-22] MEDS: HYDROCODONE/ACETAMINOPHEN 5-325 MG TABLET PO PRN (22:47)
[2019-07-23 00:10] VITALS: BP 122/67
[2019-07-23] MEDS: PIPERACILLIN/TAZO 3.375 GM/D5W 50 ML IV SCH ×4 (04:09→22:00)
[2019-07-23 04:38] VITALS: BP 124/68
[2019-07-23] MEDS: VANCOMYCIN HCL 1.25 GM in DEXTROSE 5%-WATER 250 ML IV SCH (06:12)
[2019-07-23 07:01] LABS: PROTHROMBIN TIME 10.5 SEC (9.4-11.6)
[2019-07-23 07:02] LABS: GLUCOMETER DEV NAME(LOC) 5S.1; GLUCOSE,POINT OF CARE 184 MG/DL (70-110)
[2019-07-23 07:05] LABS: ANION GAP 8 mmol/L (8-16); CALCIUM, TOTAL 9.3 mg/dL (8.8-10.5); CARBON DIOXIDE 30 mmol/L (22-29); CHLORIDE 101 mmol/L (98-107); CREATININE 1.09 mg/dL (0.60-1.30); GLOMERULAR FILTR. RATE CALC > 60 mL/min (>60); GLUCOSE,RANDOM 190 mg/dL (70-110); POTASSIUM 3.8 mmol/L (3.5-5.1); SODIUM SERUM 139 mmol/L (136-145); UREA NITROGEN, BLOOD 15 mg/dL (7-18); VANCOMYCIN,RANDOM 23.5 mcg/mL (25.0-50.0)
[2019-07-23 07:13] LABS: GLUCOMETER DEV NAME(LOC) 5S.2A; GLUCOSE,POINT OF CARE 263 MG/DL (70-110)
[2019-07-23 07:44] VITALS: BP 122/67
[2019-07-23] MEDS: POVIDONE-IODINE 10% 120 ML SOLUTION TP SCH ×2 (08:05→21:00)
[2019-07-23] MEDS: CLOPIDOGREL BISULFATE 75 MG TABLET PO SCH (08:05)
[2019-07-23] MEDS: ASPIRIN 81 MG CHEWABLE TABLET PO SCH (08:05)
[2019-07-23] MEDS: PANTOPRAZOLE SODIUM 40 MG DR TABLET PO SCH (08:08)
[2019-07-23] MEDS: DOCUSATE SODIUM 100 MG CAPSULE PO SCH ×2 (08:08→21:21)
[2019-07-23] MEDS: MULTIVITAMINS, THERAPEUTIC TABLET PO SCH (08:08)
[2019-07-23 11:29] VITALS: BP 112/56
[2019-07-23 12:03] LABS: GLUCOMETER DEV NAME(LOC) 5S.2A; GLUCOSE,POINT OF CARE 222 MG/DL (70-110)
[2019-07-23] MEDS ORDERED: SODIUM CHLORIDE 0.9% 500 ML IV ONE (15:30)
[2019-07-23 15:51] VITALS: BP 131/69
[2019-07-23] MEDS ORDERED: LIDOCAINE 1%/EPI 1:200,000/PF 10 ML VIAL ONE (18:05)
[2019-07-23] MEDS ORDERED: PHENYLEPHRINE 200 MG/D5%-WATER 250 ML IV PRN (18:15)
[2019-07-23] MEDS ORDERED: FentaNYL CITRATE-PF 100 MCG/2 ML VIAL IVP PRN (20:15)
[2019-07-23] MEDS ORDERED: HYDROmorphone 2 MG/ML SYRINGE IVP PRN (20:15)
[2019-07-23 21:00] VITALS: BP 170/85
[2019-07-23] MEDS: MORPHINE SULFATE 2 MG/ML SYRINGE IVP PRN (21:22)
[2019-07-23] MEDS: INSULIN LISPRO 100 UNITS/ML SQ PRN (23:42)
[2019-07-23] MEDS: HYDROmorphone 2 MG/ML SYRINGE IVP PRN (23:46)
[2019-07-24] VITALS: BP 168/87
[2019-07-24] MEDS: MORPHINE SULFATE 2 MG/ML SYRINGE IVP PRN ×2 (03:16→09:13)
[2019-07-24] MEDS: PIPERACILLIN/TAZO 3.375 GM/D5W 50 ML IV SCH ×2 (03:16→09:03)
[2019-07-24 04:00] VITALS: BP 159/84
[2019-07-24] MEDS ORDERED: SODIUM CHLORIDE 0.9% 250 ML IV ONE (05:06)
[2019-07-24] MEDS: HYDROmorphone 2 MG/ML SYRINGE IVP PRN ×4 (05:38→18:27)
[2019-07-24] MEDS ORDERED: ROCURONIUM BROMIDE 10 MG/ML 5 ML VIAL IVP ONE (05:40)
[2019-07-24] MEDS ORDERED: 0.9% SODIUM CHLORIDE 10 ML VIAL IVP ONE (05:40)
[2019-07-24] MEDS ORDERED: EPHEDrine SULFATE 50 MG/ML VIAL IM ONE (05:40)
[2019-07-24] MEDS ORDERED: PROPOFOL 1% 20 ML VIAL IVP ONE (05:40)
[2019-07-24] MEDS ORDERED: PHENYLEPHRINE HCL 10 MG/ML VIAL IVP ONE (05:40)
[2019-07-24] MEDS ORDERED: ETOMIDATE 2 MG/ML 10 ML VIAL IVP ONE (05:40)
[2019-07-24] MEDS ORDERED: ONDANSETRON HCL 4 MG/2 ML VIAL IVP ONE (05:40)
[2019-07-24 05:45] LABS: ANION GAP 8 mmol/L (8-16); CALCIUM, TOTAL 9.1 mg/dL (8.8-10.5); CARBON DIOXIDE 29 mmol/L (22-29); CHLORIDE 103 mmol/L (98-107); CREATININE 0.86 mg/dL (0.60-1.30); GLOMERULAR FILTR. RATE CALC > 60 mL/min (>60); GLUCOSE,RANDOM 201 mg/dL (70-110); POTASSIUM 4.1 mmol/L (3.5-5.1); SODIUM SERUM 140 mmol/L (136-145); UREA NITROGEN, BLOOD 14 mg/dL (7-18)
[2019-07-24] MEDS: INSULIN LISPRO 100 UNITS/ML SQ PRN ×3 (05:49→20:41)
[2019-07-24 06:59] LABS: GLUCOSE,POINT OF CARE 181 MG/DL (70-110)
[2019-07-24 06:59] LABS: GLUCOSE,POINT OF CARE 246 MG/DL (70-110)
[2019-07-24 08:00] VITALS: BP 134/69
[2019-07-24] MEDS ORDERED: VANCOMYCIN HCL 1 GM/D5% WATER 200 ML IV SCH (08:00)
[2019-07-24] MEDS: DOCUSATE SODIUM 100 MG CAPSULE PO SCH ×2 (09:04→20:35)
[2019-07-24] MEDS: CLOPIDOGREL BISULFATE 75 MG TABLET PO SCH (09:04)
[2019-07-24] MEDS: PANTOPRAZOLE SODIUM 40 MG DR TABLET PO SCH (09:04)
[2019-07-24] MEDS: ASPIRIN 81 MG CHEWABLE TABLET PO SCH (09:04)
[2019-07-24] MEDS: MULTIVITAMINS, THERAPEUTIC TABLET PO SCH (09:04)
[2019-07-24] MEDS: POVIDONE-IODINE 10% 120 ML SOLUTION TP SCH ×2 (09:05→21:00)
[2019-07-24] MEDS: HYDROCODONE/ACETAMINOPHEN 5-325 MG TABLET PO PRN ×3 (10:52→22:28)
[2019-07-24 12:00] VITALS: BP 145/71
[2019-07-24 16:48] VITALS: BP 130/74
[2019-07-24 19:09] LABS: GLUCOMETER DEV NAME(LOC) 5N.1; GLUCOSE,POINT OF CARE 286 MG/DL (70-110)
[2019-07-24 19:38] LABS: GLUCOSE,POINT OF CARE 253 MG/DL (70-110)
[2019-07-24 20:02] VITALS: BP 134/64
[2019-07-24] MEDS: OXYGEN THERAPY IH SCH ×2 (22:23→22:24)
[2019-07-25 00:13] VITALS: BP 145/73
[2019-07-25 02:00] LABS: GLUCOMETER DEV NAME(LOC) 5N.1; GLUCOSE,POINT OF CARE 239 MG/DL (70-110)
[2019-07-25] MEDS: HYDROCODONE/ACETAMINOPHEN 5-325 MG TABLET PO PRN ×3 (03:18→22:28)
[2019-07-25 04:35] VITALS: BP 130/56
[2019-07-25] MEDS: INSULIN LISPRO 100 UNITS/ML SQ PRN ×4 (05:52→21:05)
[2019-07-25] MEDS ORDERED: FentaNYL CITRATE-PF 250 MCG/5 ML VIAL IVP ONE (05:54)
[2019-07-25] MEDS: HYDROmorphone 2 MG/ML SYRINGE IVP PRN ×2 (06:02→18:53)
[2019-07-25 06:54] LABS: BASOPHILS % (AUTO) 0.6 % (0.0-2.0); EOSINOPHILS % (AUTO) 0.7 % (1.0-6.0); HEMATOCRIT 33.9 % (41-53); HEMOGLOBIN 11.1 g/dL (13.5-17.5); LYMPHOCYTES # (AUTO) 1.4 K/uL (1.0-4.8); LYMPHOCYTES % (AUTO) 10.1 % (22.0-44.0); MEAN CORPUSCULAR HEMOGLOBIN 29.9 pg (26.0-34.0); MEAN CORPUSCULAR HGB CONC 32.8 G/dL (31.0-37.0); MEAN CORPUSCULAR VOLUME 91 fL (80-100); MONOCYTES # (AUTO) 1.2 K/uL (0.1-1.0); MONOCYTES % (AUTO) 9.2 % (2.0-9.0); NEUTROPHILS # (AUTO) 10.7 K/uL (1.8-7.7); NEUTROPHILS % (AUTO) 79.4 % (40.0-70.0); PLATELET COUNT (AUTO) 643 K/uL (150-450); RED BLOOD CELL COUNT(AUTO) 3.72 MIL/uL (4.50-5.90); RED CELL DISTRIBUTION WIDTH 12.8 % (11.5-14.5)
[2019-07-25 07:48] VITALS: BP 125/61
[2019-07-25] MEDS: POVIDONE-IODINE 10% 120 ML SOLUTION TP SCH ×2 (09:00→20:11)
[2019-07-25] MEDS: DOCUSATE SODIUM 100 MG CAPSULE PO SCH ×2 (09:20→20:11)
[2019-07-25] MEDS: CLOPIDOGREL BISULFATE 75 MG TABLET PO SCH (09:20)
[2019-07-25] MEDS: PANTOPRAZOLE SODIUM 40 MG DR TABLET PO SCH (09:20)
[2019-07-25] MEDS: ASPIRIN 81 MG CHEWABLE TABLET PO SCH (09:20)
[2019-07-25] MEDS: MULTIVITAMINS, THERAPEUTIC TABLET PO SCH (09:21)
[2019-07-25] MEDS: OXYGEN THERAPY IH SCH ×2 (09:22→20:11)
[2019-07-25 12:34] LABS: GLUCOMETER DEV NAME(LOC) 5N.1; GLUCOSE,POINT OF CARE 189 MG/DL (70-110)
[2019-07-25] MEDS: MORPHINE SULFATE 2 MG/ML SYRINGE IVP PRN (14:45)
[2019-07-25 18:28] LABS: GLUCOMETER DEV NAME(LOC) 5N.1; GLUCOSE,POINT OF CARE 169 MG/DL (70-110)
[2019-07-25 19:43] VITALS: BP 131/65
[2019-07-25 23:21] VITALS: BP 139/66
[2019-07-26] MEDS: HYDROmorphone 2 MG/ML SYRINGE IVP PRN ×2 (00:13→05:24)
[2019-07-26] MEDS: HYDROCODONE/ACETAMINOPHEN 5-325 MG TABLET PO PRN ×2 (03:49→08:59)
[2019-07-26 04:21] VITALS: BP 130/67
[2019-07-26 04:47] LABS: GLUCOMETER DEV NAME(LOC) 5N.1; GLUCOSE,POINT OF CARE 179 MG/DL (70-110)
[2019-07-26] MEDS: INSULIN LISPRO 100 UNITS/ML SQ PRN ×4 (06:08→21:48)
[2019-07-26 07:05] LABS: BASOPHILS % (AUTO) 0.6 % (0.0-2.0); EOSINOPHILS % (AUTO) 0.4 % (1.0-6.0); HEMATOCRIT 33.9 % (41-53); HEMOGLOBIN 11.4 g/dL (13.5-17.5); LYMPHOCYTES # (AUTO) 1.4 K/uL (1.0-4.8); LYMPHOCYTES % (AUTO) 10.7 % (22.0-44.0); MEAN CORPUSCULAR HEMOGLOBIN 30.4 pg (26.0-34.0); MEAN CORPUSCULAR HGB CONC 33.5 G/dL (31.0-37.0); MEAN CORPUSCULAR VOLUME 91 fL (80-100); MONOCYTES # (AUTO) 1.4 K/uL (0.1-1.0); MONOCYTES % (AUTO) 10.4 % (2.0-9.0); NEUTROPHILS # (AUTO) 10.5 K/uL (1.8-7.7); NEUTROPHILS % (AUTO) 77.9 % (40.0-70.0); PLATELET COUNT (AUTO) 635 K/uL (150-450); RED BLOOD CELL COUNT(AUTO) 3.74 MIL/uL (4.50-5.90); RED CELL DISTRIBUTION WIDTH 12.8 % (11.5-14.5)
[2019-07-26 07:20] VITALS: BP 137/67
[2019-07-26 07:21] LABS: ALANINE AMINOTRANSFERASE 32 U/L (12-78); ALBUMIN 2.5 g/dL (3.4-5.0); ALKALINE PHOSPHATASE 293 U/L (46-116); ANION GAP 10 mmol/L (8-16); ASPARTATE AMINOTRANSFERASE 69 U/L (15-37); BILIRUBIN,TOTAL 0.8 mg/dL (0.1-1.0); CALCIUM, TOTAL 9.4 mg/dL (8.8-10.5); CARBON DIOXIDE 29 mmol/L (22-29); CHLORIDE 100 mmol/L (98-107); CREATININE 0.65 mg/dL (0.60-1.30); GLOMERULAR FILTR. RATE CALC > 60 mL/min (>60); GLUCOSE,RANDOM 153 mg/dL (70-110); POTASSIUM 3.7 mmol/L (3.5-5.1); SODIUM SERUM 139 mmol/L (136-145); TOTAL PROTEIN, SERUM 7.6 g/dL (6.4-8.2); UREA NITROGEN, BLOOD 14 mg/dL (7-18)
[2019-07-26 08:01] LABS: GLUCOMETER DEV NAME(LOC) 5N.1; GLUCOSE,POINT OF CARE 153 MG/DL (70-110)
[2019-07-26] MEDS: CLOPIDOGREL BISULFATE 75 MG TABLET PO SCH (08:25)
[2019-07-26] MEDS: PANTOPRAZOLE SODIUM 40 MG DR TABLET PO SCH (08:25)
[2019-07-26] MEDS: MULTIVITAMINS, THERAPEUTIC TABLET PO SCH (08:26)
[2019-07-26] MEDS: ASPIRIN 81 MG CHEWABLE TABLET PO SCH (08:26)
[2019-07-26] MEDS: OXYGEN THERAPY IH SCH ×2 (08:26→21:51)
[2019-07-26] MEDS: DOCUSATE SODIUM 100 MG CAPSULE PO SCH ×2 (08:26→21:45)
[2019-07-26] MEDS: POVIDONE-IODINE 10% 120 ML SOLUTION TP SCH ×2 (09:00→21:00)
[2019-07-26 11:30] VITALS: BP 140/67
[2019-07-26] MEDS: MORPHINE SULFATE 2 MG/ML SYRINGE IVP PRN ×3 (14:09→23:58)
[2019-07-26 15:22] LABS: GLUCOMETER DEV NAME(LOC) 5N.1; GLUCOSE,POINT OF CARE 224 MG/DL (70-110)
[2019-07-26 15:47] VITALS: BP 144/72
[2019-07-26 16:11] VITALS: BP 145/69
[2019-07-26 20:01] VITALS: BP 124/63
[2019-07-26 23:43] LABS: GLUCOMETER DEV NAME(LOC) 5N.1; GLUCOSE,POINT OF CARE 196 MG/DL (70-110)
[2019-07-26 23:43] LABS: GLUCOMETER DEV NAME(LOC) 5N.1; GLUCOSE,POINT OF CARE 215 MG/DL (70-110)
[2019-07-27] VITALS (7 sets, daily range): BP systolic 117–142; BP diastolic 62–74
[2019-07-27] MEDS: MORPHINE SULFATE 2 MG/ML SYRINGE IVP PRN ×2 (04:19→20:45)
[2019-07-27 05:09] LABS: BASOPHILS % (AUTO) 0.6 % (0.0-2.0); EOSINOPHILS % (AUTO) 0.6 % (1.0-6.0); HEMATOCRIT 33.6 % (41-53); HEMOGLOBIN 11.1 g/dL (13.5-17.5); LYMPHOCYTES # (AUTO) 1.4 K/uL (1.0-4.8); LYMPHOCYTES % (AUTO) 10.2 % (22.0-44.0); MEAN CORPUSCULAR HEMOGLOBIN 29.6 pg (26.0-34.0); MEAN CORPUSCULAR HGB CONC 33.1 G/dL (31.0-37.0); MEAN CORPUSCULAR VOLUME 89 fL (80-100); MONOCYTES # (AUTO) 1.3 K/uL (0.1-1.0); MONOCYTES % (AUTO) 9.3 % (2.0-9.0); NEUTROPHILS # (AUTO) 10.7 K/uL (1.8-7.7); NEUTROPHILS % (AUTO) 79.3 % (40.0-70.0); PLATELET COUNT (AUTO) 664 K/uL (150-450); RED BLOOD CELL COUNT(AUTO) 3.76 MIL/uL (4.50-5.90); RED CELL DISTRIBUTION WIDTH 12.8 % (11.5-14.5)
[2019-07-27] MEDS: INSULIN LISPRO 100 UNITS/ML SQ PRN ×4 (05:24→21:08)
[2019-07-27 05:29] LABS: ALANINE AMINOTRANSFERASE 30 U/L (12-78); ALBUMIN 2.2 g/dL (3.4-5.0); ALKALINE PHOSPHATASE 329 U/L (46-116); ANION GAP 10 mmol/L (8-16); ASPARTATE AMINOTRANSFERASE 61 U/L (15-37); BILIRUBIN,TOTAL 0.7 mg/dL (0.1-1.0); CALCIUM, TOTAL 9.1 mg/dL (8.8-10.5); CARBON DIOXIDE 28 mmol/L (22-29); CHLORIDE 99 mmol/L (98-107); CREATININE 0.81 mg/dL (0.60-1.30); GLOMERULAR FILTR. RATE CALC > 60 mL/min (>60); GLUCOSE,RANDOM 199 mg/dL (70-110); POTASSIUM 3.7 mmol/L (3.5-5.1); SODIUM SERUM 137 mmol/L (136-145); TOTAL PROTEIN, SERUM 7.3 g/dL (6.4-8.2); UREA NITROGEN, BLOOD 13 mg/dL (7-18)
[2019-07-27] MEDS: OXYGEN THERAPY IH SCH ×2 (08:20→20:00)
[2019-07-27] MEDS: DOCUSATE SODIUM 100 MG CAPSULE PO SCH ×2 (08:20→20:45)
[2019-07-27] MEDS: PANTOPRAZOLE SODIUM 40 MG DR TABLET PO SCH (08:20)
[2019-07-27] MEDS: CLOPIDOGREL BISULFATE 75 MG TABLET PO SCH (08:20)
[2019-07-27] MEDS: ASPIRIN 81 MG CHEWABLE TABLET PO SCH (08:20)
[2019-07-27] MEDS: MULTIVITAMINS, THERAPEUTIC TABLET PO SCH (08:20)
[2019-07-27] MEDS: POVIDONE-IODINE 10% 120 ML SOLUTION TP SCH ×2 (08:21→21:00)
[2019-07-27 10:07] LABS: GLUCOMETER DEV NAME(LOC) 5N.2; GLUCOSE,POINT OF CARE 210 MG/DL (70-110)
[2019-07-27] MEDS ORDERED: INSULIN GLARGINE,HUM.REC.ANLOG 100 UNITS/ML SQ ONE (11:15)
[2019-07-27] MEDS: HYDROCODONE/ACETAMINOPHEN 5-325 MG TABLET PO PRN ×2 (11:44→18:22)
[2019-07-27] MEDS: MAGNESIUM HYDROXIDE SUSPENSION 30 ML UDCUP PO PRN (13:31)
[2019-07-27 17:14] LABS: GLUCOMETER DEV NAME(LOC) 5N.1; GLUCOSE,POINT OF CARE 314 MG/DL (70-110)
[2019-07-27 17:15] LABS: GLUCOMETER DEV NAME(LOC) 5N.1; GLUCOSE,POINT OF CARE 219 MG/DL (70-110)
[2019-07-27] MEDS: INSULIN GLARGINE,HUM.REC.ANLOG 100 UNITS/ML SQ SCH (21:09)
[2019-07-28] MEDS: HYDROCODONE/ACETAMINOPHEN 5-325 MG TABLET PO PRN ×2 (04:27→17:33)
[2019-07-28 06:10] VITALS: BP 134/67
[2019-07-28] MEDS: INSULIN LISPRO 100 UNITS/ML SQ PRN ×4 (06:39→22:21)
[2019-07-28 07:39] VITALS: BP 124/66
[2019-07-28] MEDS: OXYGEN THERAPY IH SCH ×2 (07:55→23:19)
[2019-07-28 07:56] LABS: BASOPHILS % (AUTO) 0.6 % (0.0-2.0); EOSINOPHILS % (AUTO) 1.7 % (1.0-6.0); HEMATOCRIT 31.9 % (41-53); HEMOGLOBIN 10.9 g/dL (13.5-17.5); LYMPHOCYTES # (AUTO) 1.5 K/uL (1.0-4.8); LYMPHOCYTES % (AUTO) 12.1 % (22.0-44.0); MEAN CORPUSCULAR HEMOGLOBIN 30.7 pg (26.0-34.0); MEAN CORPUSCULAR HGB CONC 34.2 G/dL (31.0-37.0); MEAN CORPUSCULAR VOLUME 90 fL (80-100); MONOCYTES # (AUTO) 1.1 K/uL (0.1-1.0); MONOCYTES % (AUTO) 8.9 % (2.0-9.0); NEUTROPHILS # (AUTO) 9.5 K/uL (1.8-7.7); NEUTROPHILS % (AUTO) 76.7 % (40.0-70.0); PLATELET COUNT (AUTO) 667 K/uL (150-450); RED BLOOD CELL COUNT(AUTO) 3.56 MIL/uL (4.50-5.90); RED CELL DISTRIBUTION WIDTH 12.5 % (11.5-14.5)
[2019-07-28] MEDS: MORPHINE SULFATE 2 MG/ML SYRINGE IVP PRN ×2 (07:58→14:19)
[2019-07-28] MEDS: ASPIRIN 81 MG CHEWABLE TABLET PO SCH (07:58)
[2019-07-28] MEDS: CLOPIDOGREL BISULFATE 75 MG TABLET PO SCH (07:58)
[2019-07-28] MEDS: PANTOPRAZOLE SODIUM 40 MG DR TABLET PO SCH (07:59)
[2019-07-28] MEDS: MULTIVITAMINS, THERAPEUTIC TABLET PO SCH (07:59)
[2019-07-28] MEDS: DOCUSATE SODIUM 100 MG CAPSULE PO SCH ×2 (07:59→22:13)
[2019-07-28 08:06] LABS: ALANINE AMINOTRANSFERASE 33 U/L (12-78); ALBUMIN 2.2 g/dL (3.4-5.0); ALKALINE PHOSPHATASE 369 U/L (46-116); ANION GAP 4 mmol/L (8-16); ASPARTATE AMINOTRANSFERASE 59 U/L (15-37); BILIRUBIN,TOTAL 0.5 mg/dL (0.1-1.0); CARBON DIOXIDE 31 mmol/L (22-29); CHLORIDE 100 mmol/L (98-107); CREATININE 0.84 mg/dL (0.60-1.30); GLOMERULAR FILTR. RATE CALC > 60 mL/min (>60); GLUCOSE,RANDOM 181 mg/dL (70-110); POTASSIUM 3.6 mmol/L (3.5-5.1); SODIUM SERUM 135 mmol/L (136-145); TOTAL PROTEIN, SERUM 7.4 g/dL (6.4-8.2); UREA NITROGEN, BLOOD 15 mg/dL (7-18)
[2019-07-28] MEDS: POVIDONE-IODINE 10% 120 ML SOLUTION TP SCH ×2 (09:00→21:00)
[2019-07-28 09:55] LABS: GLUCOMETER DEV NAME(LOC) 5N.1; GLUCOSE,POINT OF CARE 192 MG/DL (70-110)
[2019-07-28 09:55] LABS: GLUCOMETER DEV NAME(LOC) 5N.1; GLUCOSE,POINT OF CARE 194 MG/DL (70-110)
[2019-07-28 11:09] VITALS: BP 137/69
[2019-07-28 12:17] LABS: GLUCOMETER DEV NAME(LOC) 5N.1; GLUCOSE,POINT OF CARE 239 MG/DL (70-110)
[2019-07-28 15:10] VITALS: BP 115/62
[2019-07-28 17:38] LABS: GLUCOMETER DEV NAME(LOC) 5N.1; GLUCOSE,POINT OF CARE 183 MG/DL (70-110)
[2019-07-28 19:33] VITALS: BP 111/75
[2019-07-28] MEDS: METOPROLOL TARTRATE 25 MG TABLET PO SCH (22:14)
[2019-07-28] MEDS: ACETAMINOPHEN 325 MG TABLET PO PRN (22:14)
[2019-07-28 22:38] LABS: GLUCOMETER DEV NAME(LOC) 5N.1; GLUCOSE,POINT OF CARE 203 MG/DL (70-110)
[2019-07-28] MEDS: INSULIN GLARGINE,HUM.REC.ANLOG 100 UNITS/ML SQ SCH (23:12)
[2019-07-29 00:15] VITALS: BP 112/64
[2019-07-29] MEDS: ACETAMINOPHEN 325 MG TABLET PO PRN (04:11)
[2019-07-29 04:36] VITALS: BP 121/66
[2019-07-29] MEDS: INSULIN LISPRO 100 UNITS/ML SQ PRN ×3 (06:59→22:12)
[2019-07-29 07:18] VITALS: BP 117/58
[2019-07-29] MEDS: POVIDONE-IODINE 10% 120 ML SOLUTION TP SCH ×2 (09:00→21:00)
[2019-07-29] MEDS: MULTIVITAMINS, THERAPEUTIC TABLET PO SCH (09:10)
[2019-07-29] MEDS: DOCUSATE SODIUM 100 MG CAPSULE PO SCH ×2 (09:10→21:49)
[2019-07-29] MEDS: ASPIRIN 81 MG CHEWABLE TABLET PO SCH (09:10)
[2019-07-29] MEDS: CLOPIDOGREL BISULFATE 75 MG TABLET PO SCH (09:10)
[2019-07-29] MEDS: PANTOPRAZOLE SODIUM 40 MG DR TABLET PO SCH (09:10)
[2019-07-29] MEDS: METOPROLOL TARTRATE 25 MG TABLET PO SCH ×2 (09:11→21:49)
[2019-07-29] MEDS: OXYGEN THERAPY IH SCH ×2 (09:16→22:14)
[2019-07-29 11:04] VITALS: BP 127/62
[2019-07-29] MEDS: HYDROCODONE/ACETAMINOPHEN 5-325 MG TABLET PO PRN ×2 (13:00→21:48)
[2019-07-29] MEDS: SIMETHICONE 80 MG CHEWABLE TABLET CHEW PRN (13:46)
[2019-07-29 14:54] VITALS: BP 126/64
[2019-07-29] MEDS: MORPHINE SULFATE 2 MG/ML SYRINGE IVP PRN (15:42)
[2019-07-29 20:46] VITALS: BP 110/60
[2019-07-29] MEDS: INSULIN GLARGINE,HUM.REC.ANLOG 100 UNITS/ML SQ SCH (22:15)
[2019-07-30 00:31] VITALS: BP 114/59
[2019-07-30] MEDS: SIMETHICONE 80 MG CHEWABLE TABLET CHEW PRN (01:00)
[2019-07-30] MEDS: MORPHINE SULFATE 2 MG/ML SYRINGE IVP PRN ×2 (03:57→13:28)
[2019-07-30 04:05] VITALS: BP 98/64
[2019-07-30 05:26] LABS: GLUCOMETER DEV NAME(LOC) 5N.1; GLUCOSE,POINT OF CARE 161 MG/DL (70-110)
[2019-07-30 05:26] LABS: GLUCOMETER DEV NAME(LOC) 5N.1; GLUCOSE,POINT OF CARE 195 MG/DL (70-110)
[2019-07-30 05:26] LABS: GLUCOMETER DEV NAME(LOC) 5N.1; GLUCOSE,POINT OF CARE 213 MG/DL (70-110)
[2019-07-30 05:26] LABS: GLUCOMETER DEV NAME(LOC) 5N.1; GLUCOSE,POINT OF CARE 213 MG/DL (70-110)
[2019-07-30 05:47] LABS: GLUCOMETER DEV NAME(LOC) 5N.1; GLUCOSE,POINT OF CARE 135 MG/DL (70-110)
[2019-07-30 06:39] LABS: BASOPHILS % (AUTO) 0.7 % (0.0-2.0); EOSINOPHILS % (AUTO) 1.8 % (1.0-6.0); HEMATOCRIT 31.5 % (41-53); HEMOGLOBIN 10.8 g/dL (13.5-17.5); LYMPHOCYTES # (AUTO) 1.6 K/uL (1.0-4.8); LYMPHOCYTES % (AUTO) 15.6 % (22.0-44.0); MEAN CORPUSCULAR HEMOGLOBIN 30.4 pg (26.0-34.0); MEAN CORPUSCULAR HGB CONC 34.2 G/dL (31.0-37.0); MEAN CORPUSCULAR VOLUME 89 fL (80-100); MONOCYTES # (AUTO) 0.8 K/uL (0.1-1.0); NEUTROPHILS # (AUTO) 7.6 K/uL (1.8-7.7); NEUTROPHILS % (AUTO) 73.9 % (40.0-70.0); PLATELET COUNT (AUTO) 669 K/uL (150-450); RED BLOOD CELL COUNT(AUTO) 3.54 MIL/uL (4.50-5.90); RED CELL DISTRIBUTION WIDTH 12.6 % (11.5-14.5)
[2019-07-30 06:48] LABS: ANION GAP 7 mmol/L (8-16); CALCIUM, TOTAL 9.1 mg/dL (8.8-10.5); CARBON DIOXIDE 30 mmol/L (22-29); CHLORIDE 101 mmol/L (98-107); CREATININE 0.86 mg/dL (0.60-1.30); GLOMERULAR FILTR. RATE CALC > 60 mL/min (>60); GLUCOSE,RANDOM 145 mg/dL (70-110); POTASSIUM 3.9 mmol/L (3.5-5.1); SODIUM SERUM 138 mmol/L (136-145); UREA NITROGEN, BLOOD 13 mg/dL (7-18)
[2019-07-30 08:16] VITALS: BP 119/63
[2019-07-30] MEDS: HYDROCODONE/ACETAMINOPHEN 5-325 MG TABLET PO PRN ×2 (08:27→18:42)
[2019-07-30] MEDS: MULTIVITAMINS, THERAPEUTIC TABLET PO SCH (08:28)
[2019-07-30] MEDS: ASPIRIN 81 MG CHEWABLE TABLET PO SCH (08:28)
[2019-07-30] MEDS: METOPROLOL TARTRATE 25 MG TABLET PO SCH ×2 (08:28→21:10)
[2019-07-30] MEDS: PANTOPRAZOLE SODIUM 40 MG DR TABLET PO SCH (08:28)
[2019-07-30] MEDS: CLOPIDOGREL BISULFATE 75 MG TABLET PO SCH (08:28)
[2019-07-30] MEDS: DOCUSATE SODIUM 100 MG CAPSULE PO SCH ×2 (08:28→21:10)
[2019-07-30] MEDS: OXYGEN THERAPY IH SCH ×2 (08:37→21:10)
[2019-07-30] MEDS: POVIDONE-IODINE 10% 120 ML SOLUTION TP SCH ×2 (08:38→21:00)
[2019-07-30 17:08] VITALS: BP 123/65
[2019-07-30] MEDS: NYSTATIN 15 GM POWDER BOTTLE TP PRN (17:53)
[2019-07-30] MEDS: INSULIN LISPRO 100 UNITS/ML SQ PRN ×2 (17:53→21:09)
[2019-07-30 18:25] LABS: GLUCOMETER DEV NAME(LOC) 5N.2; GLUCOSE,POINT OF CARE 195 MG/DL (70-110)
[2019-07-30 19:42] VITALS: BP 130/64
[2019-07-30] MEDS: INSULIN GLARGINE,HUM.REC.ANLOG 100 UNITS/ML SQ SCH (21:08)
[2019-07-30 23:53] LABS: GLUCOMETER DEV NAME(LOC) 5N.1; GLUCOSE,POINT OF CARE 180 MG/DL (70-110)
[2019-07-31 00:04] VITALS: BP 129/63
[2019-07-31 04:22] VITALS: BP 115/62
[2019-07-31] MEDS: INSULIN LISPRO 100 UNITS/ML SQ PRN ×4 (06:07→20:31)
[2019-07-31 06:46] LABS: BASOPHILS % (AUTO) 0.9 % (0.0-2.0); EOSINOPHILS % (AUTO) 1.5 % (1.0-6.0); HEMATOCRIT 32.1 % (41-53); HEMOGLOBIN 10.9 g/dL (13.5-17.5); LYMPHOCYTES # (AUTO) 1.6 K/uL (1.0-4.8); LYMPHOCYTES % (AUTO) 15.2 % (22.0-44.0); MEAN CORPUSCULAR HEMOGLOBIN 30.1 pg (26.0-34.0); MEAN CORPUSCULAR VOLUME 89 fL (80-100); NEUTROPHILS # (AUTO) 7.6 K/uL (1.8-7.7); NEUTROPHILS % (AUTO) 72.4 % (40.0-70.0); PLATELET COUNT (AUTO) 632 K/uL (150-450); RED BLOOD CELL COUNT(AUTO) 3.63 MIL/uL (4.50-5.90); RED CELL DISTRIBUTION WIDTH 12.7 % (11.5-14.5)
[2019-07-31 06:48] LABS: ANION GAP 9 mmol/L (8-16); CALCIUM, TOTAL 9.2 mg/dL (8.8-10.5); CARBON DIOXIDE 29 mmol/L (22-29); CHLORIDE 101 mmol/L (98-107); GLOMERULAR FILTR. RATE CALC > 60 mL/min (>60); GLUCOSE,RANDOM 184 mg/dL (70-110); POTASSIUM 3.9 mmol/L (3.5-5.1); SODIUM SERUM 139 mmol/L (136-145); UREA NITROGEN, BLOOD 19 mg/dL (7-18)
[2019-07-31 07:45] VITALS: BP 134/67
[2019-07-31] MEDS: PANTOPRAZOLE SODIUM 40 MG DR TABLET PO SCH (08:00)
[2019-07-31] MEDS: OXYGEN THERAPY IH SCH ×2 (08:00→20:33)
[2019-07-31] MEDS: ASPIRIN 81 MG CHEWABLE TABLET PO SCH (08:00)
[2019-07-31] MEDS: CLOPIDOGREL BISULFATE 75 MG TABLET PO SCH (08:01)
[2019-07-31] MEDS: DOCUSATE SODIUM 100 MG CAPSULE PO SCH ×2 (08:01→20:24)
[2019-07-31] MEDS: MULTIVITAMINS, THERAPEUTIC TABLET PO SCH (08:01)
[2019-07-31] MEDS: METOPROLOL TARTRATE 25 MG TABLET PO SCH ×2 (08:01→20:24)
[2019-07-31] MEDS: MORPHINE SULFATE 2 MG/ML SYRINGE IVP PRN ×3 (08:59→20:27)
[2019-07-31] MEDS: POVIDONE-IODINE 10% 120 ML SOLUTION TP SCH ×2 (09:00→20:45)
[2019-07-31 09:51] LABS: GLUCOMETER DEV NAME(LOC) 5N.1; GLUCOSE,POINT OF CARE 176 MG/DL (70-110)
[2019-07-31 12:05] VITALS: BP 131/63
[2019-07-31 16:11] VITALS: BP 120/59
[2019-07-31 20:03] VITALS: BP 119/62
[2019-07-31] MEDS: INSULIN GLARGINE,HUM.REC.ANLOG 100 UNITS/ML SQ SCH (20:32)
[2019-08-01] VITALS (7 sets, daily range): BP systolic 111–147; BP diastolic 55–83
[2019-08-01] MEDS: MORPHINE SULFATE 2 MG/ML SYRINGE IVP PRN ×2 (05:53→20:56)
[2019-08-01 07:22] LABS: BASOPHILS % (AUTO) 0.8 % (0.0-2.0); EOSINOPHILS % (AUTO) 1.9 % (1.0-6.0); HEMATOCRIT 30.6 % (41-53); HEMOGLOBIN 10.3 g/dL (13.5-17.5); LYMPHOCYTES % (AUTO) 17.9 % (22.0-44.0); MEAN CORPUSCULAR HEMOGLOBIN 30.3 pg (26.0-34.0); MEAN CORPUSCULAR HGB CONC 33.8 G/dL (31.0-37.0); MEAN CORPUSCULAR VOLUME 89 fL (80-100); NEUTROPHILS % (AUTO) 70.4 % (40.0-70.0); PLATELET COUNT (AUTO) 638 K/uL (150-450); RED BLOOD CELL COUNT(AUTO) 3.42 MIL/uL (4.50-5.90)
[2019-08-01 07:25] LABS: ANION GAP 6 mmol/L (8-16); CALCIUM, TOTAL 9.4 mg/dL (8.8-10.5); CARBON DIOXIDE 30 mmol/L (22-29); CHLORIDE 101 mmol/L (98-107); CREATININE 0.94 mg/dL (0.60-1.30); GLOMERULAR FILTR. RATE CALC > 60 mL/min (>60); GLUCOSE,RANDOM 161 mg/dL (70-110); SODIUM SERUM 137 mmol/L (136-145); UREA NITROGEN, BLOOD 18 mg/dL (7-18)
[2019-08-01] MEDS: DOCUSATE SODIUM 100 MG CAPSULE PO SCH ×2 (09:00→20:53)
[2019-08-01] MEDS: OXYGEN THERAPY IH SCH ×2 (10:15→20:53)
[2019-08-01] MEDS: ASPIRIN 81 MG CHEWABLE TABLET PO SCH (10:16)
[2019-08-01] MEDS: MULTIVITAMINS, THERAPEUTIC TABLET PO SCH (10:17)
[2019-08-01] MEDS: METOPROLOL TARTRATE 25 MG TABLET PO SCH ×2 (10:17→20:53)
[2019-08-01] MEDS: PANTOPRAZOLE SODIUM 40 MG DR TABLET PO SCH (10:17)
[2019-08-01] MEDS: CLOPIDOGREL BISULFATE 75 MG TABLET PO SCH (10:17)
[2019-08-01] MEDS: POVIDONE-IODINE 10% 120 ML SOLUTION TP SCH ×2 (10:17→21:00)
[2019-08-01] MEDS: HYDROmorphone 2 MG/ML SYRINGE IVP PRN (10:18)
[2019-08-01] MEDS: INSULIN LISPRO 100 UNITS/ML SQ PRN ×3 (12:37→20:59)
[2019-08-01] MEDS: HYDROCODONE/ACETAMINOPHEN 5-325 MG TABLET PO PRN (18:58)
[2019-08-01 19:58] LABS: GLUCOMETER DEV NAME(LOC) 5N.1; GLUCOSE,POINT OF CARE 191 MG/DL (70-110)
[2019-08-01 19:59] LABS: GLUCOMETER DEV NAME(LOC) 5N.1; GLUCOSE,POINT OF CARE 190 MG/DL (70-110)
[2019-08-01 19:59] LABS: GLUCOMETER DEV NAME(LOC) 5N.1; GLUCOSE,POINT OF CARE 192 MG/DL (70-110)
[2019-08-01 19:59] LABS: GLUCOMETER DEV NAME(LOC) 5N.1; GLUCOSE,POINT OF CARE 159 MG/DL (70-110)
[2019-08-01 19:59] LABS: GLUCOMETER DEV NAME(LOC) 5N.1; GLUCOSE,POINT OF CARE 156 MG/DL (70-110)
[2019-08-01] MEDS: INSULIN GLARGINE,HUM.REC.ANLOG 100 UNITS/ML SQ SCH (20:59)
[2019-08-01 21:24] LABS: GLUCOMETER DEV NAME(LOC) 5N.2; GLUCOSE,POINT OF CARE 195 MG/DL (70-110)
[2019-08-02] MEDS: NYSTATIN 15 GM POWDER BOTTLE TP PRN (00:43)
[2019-08-02 05:15] VITALS: BP 119/60
[2019-08-02] MEDS: MORPHINE SULFATE 2 MG/ML SYRINGE IVP PRN ×2 (06:37→15:00)
[2019-08-02 06:41] LABS: BASOPHILS % (AUTO) 0.9 % (0.0-2.0); EOSINOPHILS % (AUTO) 2.1 % (1.0-6.0); HEMATOCRIT 33.1 % (41-53); HEMOGLOBIN 11.2 g/dL (13.5-17.5); LYMPHOCYTES # (AUTO) 2.1 K/uL (1.0-4.8); MEAN CORPUSCULAR HEMOGLOBIN 30.1 pg (26.0-34.0); MEAN CORPUSCULAR HGB CONC 33.9 G/dL (31.0-37.0); MEAN CORPUSCULAR VOLUME 89 fL (80-100); MONOCYTES # (AUTO) 1.1 K/uL (0.1-1.0); MONOCYTES % (AUTO) 10.9 % (2.0-9.0); NEUTROPHILS % (AUTO) 66.1 % (40.0-70.0); PLATELET COUNT (AUTO) 591 K/uL (150-450); RED BLOOD CELL COUNT(AUTO) 3.73 MIL/uL (4.50-5.90); RED CELL DISTRIBUTION WIDTH 13.1 % (11.5-14.5)
[2019-08-02 06:57] LABS: GLUCOMETER DEV NAME(LOC) 5N.1; GLUCOSE,POINT OF CARE 146 MG/DL (70-110)
[2019-08-02 07:01] VITALS: BP 111/65
[2019-08-02 07:02] LABS: ANION GAP 4 mmol/L (8-16); CALCIUM, TOTAL 9.2 mg/dL (8.8-10.5); CARBON DIOXIDE 32 mmol/L (22-29); CHLORIDE 100 mmol/L (98-107); CREATININE 0.95 mg/dL (0.60-1.30); GLOMERULAR FILTR. RATE CALC > 60 mL/min (>60); GLUCOSE,RANDOM 155 mg/dL (70-110); POTASSIUM 4.2 mmol/L (3.5-5.1); SODIUM SERUM 136 mmol/L (136-145); UREA NITROGEN, BLOOD 17 mg/dL (7-18)
[2019-08-02] MEDS: CLOPIDOGREL BISULFATE 75 MG TABLET PO SCH (08:15)
[2019-08-02] MEDS: HYDROCODONE/ACETAMINOPHEN 5-325 MG TABLET PO PRN ×3 (08:15→18:32)
[2019-08-02] MEDS: METOPROLOL TARTRATE 25 MG TABLET PO SCH ×2 (08:15→21:05)
[2019-08-02] MEDS: MULTIVITAMINS, THERAPEUTIC TABLET PO SCH (08:15)
[2019-08-02] MEDS: DOCUSATE SODIUM 100 MG CAPSULE PO SCH ×2 (08:15→21:00)
[2019-08-02] MEDS: ASPIRIN 81 MG CHEWABLE TABLET PO SCH (08:16)
[2019-08-02] MEDS: PANTOPRAZOLE SODIUM 40 MG DR TABLET PO SCH (08:16)
[2019-08-02 08:22] LABS: GLUCOMETER DEV NAME(LOC) 5N.1; GLUCOSE,POINT OF CARE 148 MG/DL (70-110)
[2019-08-02] MEDS: INSULIN LISPRO 100 UNITS/ML SQ PRN ×4 (08:22→21:12)
[2019-08-02] MEDS: OXYGEN THERAPY IH SCH ×2 (08:26→21:15)
[2019-08-02] MEDS: POVIDONE-IODINE 10% 120 ML SOLUTION TP SCH ×2 (09:00→21:00)
[2019-08-02 11:32] VITALS: BP 111/59
[2019-08-02 12:31] LABS: GLUCOMETER DEV NAME(LOC) 5N.1; GLUCOSE,POINT OF CARE 169 MG/DL (70-110)
[2019-08-02 16:19] VITALS: BP 114/60
[2019-08-02 18:25] LABS: GLUCOMETER DEV NAME(LOC) 5N.1; GLUCOSE,POINT OF CARE 185 MG/DL (70-110)
[2019-08-02 20:17] VITALS: BP 119/64
[2019-08-02] MEDS: INSULIN GLARGINE,HUM.REC.ANLOG 100 UNITS/ML SQ SCH (21:13)
[2019-08-02 23:51] VITALS: BP 109/58
[2019-08-03] MEDS: MORPHINE SULFATE 2 MG/ML SYRINGE IVP PRN (01:30)
[2019-08-03 02:27] LABS: GLUCOMETER DEV NAME(LOC) 5N.1; GLUCOSE,POINT OF CARE 176 MG/DL (70-110)
[2019-08-03 05:22] VITALS: BP 128/67
[2019-08-03 05:23] LABS: BASOPHILS % (AUTO) 0.7 % (0.0-2.0); EOSINOPHILS % (AUTO) 3.2 % (1.0-6.0); HEMATOCRIT 33.1 % (41-53); HEMOGLOBIN 11.1 g/dL (13.5-17.5); LYMPHOCYTES # (AUTO) 2.2 K/uL (1.0-4.8); LYMPHOCYTES % (AUTO) 23.1 % (22.0-44.0); MEAN CORPUSCULAR HEMOGLOBIN 29.6 pg (26.0-34.0); MEAN CORPUSCULAR HGB CONC 33.4 G/dL (31.0-37.0); MEAN CORPUSCULAR VOLUME 89 fL (80-100); MONOCYTES % (AUTO) 10.8 % (2.0-9.0); NEUTROPHILS # (AUTO) 5.9 K/uL (1.8-7.7); NEUTROPHILS % (AUTO) 62.2 % (40.0-70.0); PLATELET COUNT (AUTO) 570 K/uL (150-450); RED BLOOD CELL COUNT(AUTO) 3.73 MIL/uL (4.50-5.90)
[2019-08-03 05:33] LABS: ANION GAP 1 mmol/L (8-16); CALCIUM, TOTAL 9.2 mg/dL (8.8-10.5); CARBON DIOXIDE 34 mmol/L (22-29); CHLORIDE 100 mmol/L (98-107); CREATININE 1.03 mg/dL (0.60-1.30); GLOMERULAR FILTR. RATE CALC > 60 mL/min (>60); GLUCOSE,RANDOM 143 mg/dL (70-110); POTASSIUM 4.8 mmol/L (3.5-5.1); SODIUM SERUM 135 mmol/L (136-145); UREA NITROGEN, BLOOD 13 mg/dL (7-18)
[2019-08-03] MEDS: INSULIN LISPRO 100 UNITS/ML SQ PRN ×4 (06:41→16:40)
[2019-08-03 07:01] VITALS: BP 122/67
[2019-08-03 08:04] LABS: GLUCOMETER DEV NAME(LOC) 5N.1; GLUCOSE,POINT OF CARE 166 MG/DL (70-110)
[2019-08-03 08:04] LABS: GLUCOMETER DEV NAME(LOC) 5N.2; GLUCOSE,POINT OF CARE 158 MG/DL (70-110)
[2019-08-03] MEDS: MAGNESIUM HYDROXIDE SUSPENSION 30 ML UDCUP PO PRN (08:05)
[2019-08-03] MEDS: SIMETHICONE 80 MG CHEWABLE TABLET CHEW PRN (08:06)
[2019-08-03] MEDS: DOCUSATE SODIUM 100 MG CAPSULE PO SCH (08:06)
[2019-08-03] MEDS: CLOPIDOGREL BISULFATE 75 MG TABLET PO SCH (08:07)
[2019-08-03] MEDS: PANTOPRAZOLE SODIUM 40 MG DR TABLET PO SCH (08:07)
[2019-08-03] MEDS: MULTIVITAMINS, THERAPEUTIC TABLET PO SCH (08:07)
[2019-08-03] MEDS: ASPIRIN 81 MG CHEWABLE TABLET PO SCH (08:07)
[2019-08-03] MEDS: METOPROLOL TARTRATE 25 MG TABLET PO SCH (08:07)
[2019-08-03 10:40] VITALS: BP 124/60
[2019-08-03] MEDS ORDERED: HYDR-4455 PO (11:48)
[2019-08-03] MEDS ORDERED: MULT1CAP32 PO (11:51)
[2019-08-03] MEDS ORDERED: ASPI81TA87 PO (11:55)
[2019-08-03] MEDS ORDERED: CLOP75TA3 PO (11:55)
[2019-08-03] MEDS ORDERED: DOCU-119 PO (11:56)
[2019-08-03] MEDS: HYDROCODONE/ACETAMINOPHEN 5-325 MG TABLET PO PRN ×2 (12:38→16:37)
[2019-08-03 12:45] LABS: GLUCOMETER DEV NAME(LOC) 5N.1; GLUCOSE,POINT OF CARE 197 MG/DL (70-110)
[2019-08-03 15:03] VITALS: BP 110/60
[2019-08-03 16:32] LABS: GLUCOMETER DEV NAME(LOC) 5N.1; GLUCOSE,POINT OF CARE 167 MG/DL (70-110)
== END 2019-08-03 18:15 | disposition home or self-care (01) | DRG 710 ==
LOC: EMS 14:33 → AHU 07-08 00:39 → 5S 07-09 12:30 → ICU 07-23 19:00 → 5N 07-24 16:32
PROVIDERS: ADMIT Internal Medicine; ATTEND Internal Medicine
PROC: 4A023N8 Measurement of Cardiac Sampling and Pressure, Bilateral, Percutaneous Approach (ICD-10-PCS; principal; 2019-07-13)
PROC: B2111ZZ Fluoroscopy of Multiple Coronary Arteries using Low Osmolar Contrast (ICD-10-PCS; 2019-07-13)
PROC: B2151ZZ Fluoroscopy of Left Heart using Low Osmolar Contrast (ICD-10-PCS; 2019-07-13)
PROC: B3101ZZ Fluoroscopy of Thoracic Aorta using Low Osmolar Contrast (ICD-10-PCS; 2019-07-13)
PROC: B41G1ZZ Fluoroscopy of Left Lower Extremity Arteries using Low Osmolar Contrast (ICD-10-PCS; 2019-07-13)
PROC: 047U3ZZ Dilation of Left Peroneal Artery, Percutaneous Approach (ICD-10-PCS; 2019-07-16)
PROC: B41G1ZZ Fluoroscopy of Left Lower Extremity Arteries using Low Osmolar Contrast (ICD-10-PCS; 2019-07-16)
PROC: B4101ZZ Fluoroscopy of Abdominal Aorta using Low Osmolar Contrast (ICD-10-PCS; 2019-07-16)
PROC: 04CU3ZZ Extirpation of Matter from Left Peroneal Artery, Percutaneous Approach (ICD-10-PCS; 2019-07-16)
PROC: 0Y6J0Z1 Detachment at Left Lower Leg, High, Open Approach (ICD-10-PCS; 2019-07-23)
PROC: 04HY32Z Insertion of Monitoring Device into Lower Artery, Percutaneous Approach (ICD-10-PCS; 2019-07-23)
DX: A41.9 Sepsis, unspecified organism (principal); I21.4 Non-ST elevation (NSTEMI) myocardial infarction; E11.52 Type 2 diabetes mellitus with diabetic peripheral angiopathy with gangrene; L03.116 Cellulitis of left lower limb; I27.20 Pulmonary hypertension, unspecified; M86.172 Other acute osteomyelitis, left ankle and foot; I25.10 Atherosclerotic heart disease of native coronary artery without angina pectoris; B95.1 Streptococcus, group B, as the cause of diseases classified elsewhere; E11.69 Type 2 diabetes mellitus with other specified complication; I50.32 Chronic diastolic (congestive) heart failure; I70.209 Unspecified atherosclerosis of native arteries of extremities, unspecified extremity; I11.0 Hypertensive heart disease with heart failure; N39.0 Urinary tract infection, site not specified; I35.0 Nonrheumatic aortic (valve) stenosis; E87.6 Hypokalemia; E78.5 Hyperlipidemia, unspecified; Z87.891 Personal history of nicotine dependence
CPT/HCPCS: 36200; 37229; 73706; 73720; 75630; 75635; 75716; 75962; 83036; 86140; 86850; 86900; 86901; 86920; 87040; 87081; 87086; 88305; 88311; 93005; 93306; 93460; 93567; 93880; 93925; 93926; 94761; 96372; 97110; 97116; 97162; 97166; 97530; 97535; A9585; G0378; J1170; J1644; J1815; J2270; J2370; J2405; J2543; J2704; J3010; J3370; J3490; J7040; J7050; J7060; Q9967

== ENCOUNTER 2020-07-25 18:00 | Emergency (ER) | payer MEDICAID ==
[~2020-07-25] VITALS: Ht 177.8 cm; Wt 72.7 kg
[~2020-07-25 18:00] MED LIST: ASPI81TA87 PO; CLOP75TA60 PO; DOCU-119 PO; HYDR-4455 PO; METF-960 PO; MULT1CAP32 PO
[2020-07-25] MEDS ORDERED: ASPIRIN 81 MG CHEWABLE TABLET PO ONE ×2 (18:45→19:30)
[2020-07-25 19:22] LABS: BASOPHILS % (AUTO) 0.1 % (0.0-2.0); EOSINOPHILS % (AUTO) 0 % (1.0-6.0); LYMPHOCYTES % (AUTO) 7.2 % (22.0-44.0); MEAN CORPUSCULAR HEMOGLOBIN 30.6 pg (26.0-34.0); MEAN CORPUSCULAR HGB CONC 33.2 G/dL (31.0-37.0); MEAN CORPUSCULAR VOLUME 92 fL (80-100); MONOCYTES # (AUTO) 1.7 K/uL (0.1-1.0); MONOCYTES % (AUTO) 6.3 % (2.0-9.0); NEUTROPHILS # (AUTO) 23.7 K/uL (1.8-7.7); PLATELET COUNT (AUTO) 284 K/uL (150-450); RED BLOOD CELL COUNT(AUTO) 4.23 MIL/uL (4.50-5.90); RED CELL DISTRIBUTION WIDTH 13.1 % (11.5-14.5)
[2020-07-25 19:23] LABS: NEUTROPHILS % (AUTO) 86.4 % (40.0-70.0)
[2020-07-25] MEDS ORDERED: HEPARIN SODIUM 25000 UNITS/D5W 250 ML IV PRN (19:30)
[2020-07-25] MEDS ORDERED: NITROGLYCERIN 2% (1 GM=INCH) PACKET TP ONE (19:30)
[2020-07-25] MEDS ORDERED: ATORVASTATIN CALCIUM 40 MG TABLET PO ONE (19:30)
[2020-07-25] MEDS ORDERED: HEPARIN SODIUM,PORCINE 5,000 UNITS/ML VIAL IVP ONE ×2 (19:30→19:45)
[2020-07-25] MEDS ORDERED: HEPARIN SODIUM,PORCINE 5,000 UNITS/ML VIAL IVP PRN ×2 (19:30)
[2020-07-25 19:36] LABS: CALCIUM, TOTAL 9.2 mg/dL (8.8-10.5); CREATININE 1.59 mg/dL (0.60-1.30); POTASSIUM 3.8 mmol/L (3.5-5.1)
[2020-07-25] MEDS ORDERED: SODIUM CHLORIDE 0.9% 500 ML IV ONE (19:45)
[2020-07-25 19:49] LABS: APPEARANCE,URINE CLOUDY (CLEAR); BILIRUBIN,URINE NEGATIVE (NEGATIVE); GLUCOSE, URINE (UA) NEGATIVE (NEGATIVE); KETONES,URINE NEGATIVE (NEGATIVE); LEUKOCYTE ESTERASE ,URINE SMALL (NEGATIVE); NITRATE,URINE NEGATIVE (NEGATIVE); OCCULT BLOOD,URINE TRACE (NEGATIVE); PROTEIN,URINE SEE CONFIRM (NEGATIVE); UROBILINOGEN,URINE 0.2 mg/dL (<=1.0)
[2020-07-25 19:52] LABS: INR 1.1 (0.9-1.1); PROTHROMBIN TIME 11.6 SEC (9.4-11.6)
[2020-07-25 20:03] LABS: BACTERIA,URINE Moderate /HPF (None Seen); RBC,URINE 0-2 /HPF (0-2); SULFOSALICYLIC ACID,URINE 2+ (Negative)
[2020-07-25 20:04] LABS: ALBUMIN 3.9 g/dL (3.4-5.0); BILIRUBIN,TOTAL 1.2 mg/dL (0.1-1.0); TOTAL PROTEIN, SERUM 8.3 g/dL (6.4-8.2)
[2020-07-25] MEDS ORDERED: MORPHINE SULFATE 4 MG/ML SYRINGE IVP ONE (20:15)
[2020-07-25] MEDS ORDERED: DiphenhydrAMINE HCL 50 MG/ML VIAL IVP ONE (20:15)
[2020-07-25 20:21] LABS: COVID AG,FIA SOURCE NASOPHARYNGEAL
[2020-07-25 20:27] LABS: D-DIMER 0.37 mg/L FEU (0.00-0.50)
[2020-07-25 20:48] LABS: INFLUENZA TYPE A NEGATIVE FOR TYPE A (NEGATIVE); INFLUENZA TYPE B NEGATIVE FOR TYPE B (NEGATIVE)
[2020-07-25 21:04] VITALS: BP 101/65
== END 2020-07-25 21:28 | disposition short-term general hospital (02) ==
LOC: EMS 18:03
DX: R07.9 Chest pain, unspecified (principal)
CPT/HCPCS: 36415; 71045; 80053; 81001; 82550; 82962; 83690; 83880; 84145; 84484; 85025; 85379; 85610; 85730; 87086; 87426; 87804; 93005; 96361; 96374; 96375; 99291; J1200; J1644; J2270; J7040; 99285